=== PATIENT | female | born 1990 | race Caucasian/White ===

== ENCOUNTER 2016-10-10 16:14 | Inpatient (IN) | payer MEDICAID, OTHER ==
[~2016-10-10] VITALS: Ht 157.5 cm; Wt 67.0 kg
[2016-10-10] MEDS ORDERED: SOD CHLORIDE 0.9% 1,000 ML IV STA (17:42)
--- NOTE | 2016-10-10 17:46 | ERD ---
ER Documentation Chief Complaint Date/Time DATE: 10/10/16 TIME: 17:44 Chief Complaint VOMITING X 2 DAYS , FAINTED AT WORK HPI Patient is a 26-year-old female who presents with fainting episode. History is limited due to patient being amnestic to event. According to her father, she said goodbye and left home in [place] to go to work. She was later found lying in the bushes unresponsive in the parking lot of her work. Patient spontaneously regained consciousness. She states that she cannot recall leaving the house. The patient denies headache. She reports feeling lightheaded. She denies chest pain, shortness of breath, abdominal pain, fever. She did have several episodes of vomiting 2 days ago, but they resolved. She has not had diarrhea. She denies dysuria. Last menstrual period was 1 month ago. Patient denies depression, anxiety, or acute stress. ROS All systems reviewed and are negative except as per history of present illness. Medications Home Meds No Active Prescriptions or Reported Meds Allergies Allergies: Coded Allergies: No Known Allergy (Unverified , 10/10/16) PMhx/Soc Past medical history: None Past surgical history: None Social history: Denies tobacco, [facility] or [facility] Family History: No coronary disease, No diabetes Physical Exam Vitals Vital Signs Date Time Temp Pulse Resp B/P Pulse Ox O2 Delivery O2 Flow Rate FiO2 10/10/16 19:06 98.1 76 19 119/71 100 Room Air 10/10/16 16:20 98.1 84 18 117/71 98 Physical Exam Const: Alert, anxious, no acute distress Head: Atraumatic Eyes: Normal Conjunctiva, no pallor, no icterus ENT: Normal External Ears, Nose and Mouth. Neck: Full range of motion..~ No meningismus. Resp: Clear to auscultation bilaterally, no wheezes, no rales Cardio: Regular rate and rhythm, no murmurs Abd: Soft, non tender, non distended. Skin: No petechiae or rashes Back: No midline or flank tenderness Ext: No cyanosis, or edema Neur: Awake and alert, cranial nerves II through XII intact bilaterally, strength and sensation full in 4 extremities. Psych: Normal Mood and Affect Result Diagram: 10/10/16 1740 10/10/16 1840 Results 24 hrs Laboratory Tests Test 10/10/16 17:30 7/19/17 17:40 10/10/16 18:40 Urine Color YELLOW Urine Clarity SLIGHTLY CLOUDY Urine pH 7.0 Urine Specific [place] 1.025 Urine Ketones 2+mg/dL Urine Nitrite NEGATIVEmg/dL Urine Bilirubin NEGATIVEmg/dL Urine Urobilinogen NEGATIVEmg/dL Urine Leukocyte Esterase TRACELeu/ul Urine Microscopic RBC 18/HPF Urine Microscopic WBC 1/HPF Urine Squamous Epithelial Cells FEW/HPF Urine Bacteria FEW/HPF Urine Mucus FEW/HPF Urine Hemoglobin 1+mg/dL Urine Glucose NEGATIVEmg/dL Urine Total Protein NEGATIVEmg/dl White Blood Count 17.110^3/ul Red Blood Count 4.8010^6/ul Hemoglobin 14.5g/dl Hematocrit 43.7% Mean Corpuscular Volume 91.0fl Mean Corpuscular Hemoglobin 30.2pg Mean Corpuscular Hemoglobin Concent 33.2g/dl Red Cell Distribution Width 12.1% Platelet Count 04234^3/UL Mean Platelet Volume 11.7fl Neutrophils % 81.3% Lymphocytes % 13.6% Monocytes % 4.4% Eosinophils % 0.1% Basophils % 0.2% Nucleated Red Blood Cells % 0.0/100WBC Neutrophils # 13.910^3/ul Lymphocytes # 2.310^3/ul Monocytes # 0.810^3/ul Eosinophils # 0.010^3/ul Basophils # 0.010^3/ul Nucleated Red Blood Cells # 0.010^3/ul Prothrombin Time 12.5Sec Prothrombin Time Ratio 1.0 INR International Normalized Ratio 0.93 Serum HCG, Qualitative NEGATIVE Sodium Level 144mmol/L Potassium Level 3.8mmol/L Chloride Level 103mmol/L Carbon Dioxide Level 27mmol/L Anion Gap 18 Blood Urea Nitrogen 14mg/dl Creatinine 0.67mg/dl Glucose Level 107mg/dl Calcium Level 9.3mg/dl Total Bilirubin 0.1mg/dl Direct Bilirubin 0.00mg/dl Indirect Bilirubin 0.1mg/dl Aspartate Amino Transf (AST/SGOT) 24IU/L Alanine Aminotransferase (ALT/SGPT) 27IU/L Alkaline Phosphatase 66IU/L Total Protein 7.9g/dl Albumin 4.2g/dl Globulin 3.70g/dl Albumin/Globulin Ratio 1.13 Current Medications Medications (Trade) Dose Ordered Sig/Debbie Route PRN Reason Start Time Stop Time Status Last Admin Dose Admin Sodium Chloride (NS) 1,000 ml @ 1,000 mls/hr Q1H STAT IV 10/10/16 17:42 10/10/16 18:41 DC 10/10/16 17:59 Ondansetron HCl (Zofran Inj) 4 mg ER BRIDGE PRN IV NAUSEA AND/OR VOMITING 10/10/16 22:00 10/11/16 21:59 Acetaminophen (Tylenol Tab) 650 mg ER BRIDGE PRN PO MILD PAIN/FEVER 10/10/16 22:00 10/11/16 21:59 Procedures/MDM EKG read by me: Time 1824, rate 76 Rhythm: Normal sinus [place]: Normal Intervals: Normal ST-T waves: no ischemic changes Ectopy: No Q-waves: No Impression: No evidence of ischemia or arrhythmia MDM: Patient is a 26-year-old female who was found in the bushes outside of her work unresponsive. Syncope workup was initiated, including EKG, labs, and CT head due to amnesia. Tests were unremarkable except for leukocytosis which is nonspecific. There were no other neurological deficits. She was initially amnestic to a long period of events prior to her being found. She subsequently regained memory from this time period, but was noted to have repetitive questioning by her father while she was in the ER. I attempted to test the patient's word recall, and she was not able to recall 3 words at 10 minutes. She also stated that she could not recall having encountered me before. The patient was crying profusely during 5 hours in the ER. I questioned her in private on multiple occasions about stress, anxiety, depression, abuse, and the patient denies any of these. She stated that she is crying because she is upset that she passed out and that she cannot remember the events around this time. Her father states that her brother at this hospital 3 years ago, and thinks that that is what is upsetting her, but the patient does not endorse this view. I suspect that the patient may have sustained an emotional trauma and may lack insight or not wish to disclose the events. However, given that she is continuing to have anterograde amnesia, she will need to be admitted for further neurologic workup prior to medical clearance. She may require psychiatric evaluation, but does not meet hold criteria at this time. Patient will be admitted to observation by Dr. Garduon. Departure Diagnosis: Primary Impression: Syncope Syncope type: unspecified Qualified Code: R55 - Syncope, unspecified syncope type Additional Impression: Anterograde amnesia Condition: Stable EDSNO GARVIN MD Oct 10, 2016 17:46
[2016-10-10 17:58] LABS: ADD SCAN DIFF NO
[2016-10-10 18:00] LABS: BASOPHILS % 0.2 % (0.0-2.0); EOSINOPHILS % 0.1 % (0.0-7.0); HEMATOCRIT 43.7 % (37.0-47.0); HEMOGLOBIN 14.5 g/dl (12.0-16.0); LYMPHOCYTES # 2.3 10^3/ul (0.8-2.9); LYMPHOCYTES % 13.6 % (15.0-51.0); MEAN CORPUSCULAR HEMOGLOBIN 30.2 pg (29.0-33.0); MEAN CORPUSCULAR HGB CONC 33.2 g/dl (32.0-37.0); MEAN PLATELET VOLUME 11.7 fl (7.4-10.4); MONOCYTE # 0.8 10^3/ul (0.3-0.9); MONOCYTES % 4.4 % (0.0-11.0); NEUTROPHIL # 13.9 10^3/ul (1.6-7.5); NEUTROPHILS % 81.3 % (39.0-77.0); PLATELET COUNT 306 10^3/UL (140-415); RED CELL DISTRIBUTION WIDTH 12.1 % (11.5-14.5); WHITE BLOOD COUNT 17.1 10^3/ul (4.8-10.8)
[2016-10-10 18:20] LABS: ADD UMIC YES; UR ASCORBIC ACID NEGATIVE (NEGATIVE); UR BACTERIA FEW /HPF (NONE SEEN); UR BILIRUBIN (Dip) NEGATIVE (NEGATIVE); UR BLOOD (Dip) 1+ mg/dL (NEGATIVE); UR CLARITY SLIGHTLY CLOUDY (CLEAR); UR COLOR YELLOW (YELLOW); UR GLUCOSE (Dip) NEGATIVE (NEGATIVE); UR KETONES (Dip) 2+ mg/dL (NEGATIVE); UR LEUKOCYTE ESTERASE (Dip) TRACE Leu/ul (NEGATIVE); UR MUCUS FEW /HPF (NONE SEEN); UR NITRITE (Dip) NEGATIVE (NEGATIVE); UR RBC 18 /HPF (0-5); UR SPECIFIC GRAVITY (Dip) 1.025 (1.003-1.030); UR SQUAMOUS EPITHELIAL CELL FEW /HPF (FEW); UR TOTAL PROTEIN (Dip) NEGATIVE (NEGATIVE); UR UROBILINOGEN (Dip) NEGATIVE (NEGATIVE)
--- NOTE | 2016-10-10 18:27 | RADRPT ---
PROCEDURE: CT Head without contrast. CLINICAL INDICATION: Syncope TECHNIQUE: The study was performed utilizing a GE 64-slice multidetector CT scanner. Direct spiral axial CT images of the brain were obtained from the vertex to the skull base without contrast. Cor onal and sagittal reformat images are provided. The CTDI vol is 43.05 mGy and the DLP is 720.23 mGy -cm. The images were reviewed on a PACS workstation. COMPARISON: No prior studies are available for comparison. FINDINGS: The ventricles and cortical sulci are within normal limits. The carcamo-white matter differentiation i s maintained. No intra or extra-axial fluid collection or mass effect or shift in the midline struc tures is seen. The visualized paranasal sinuses, mastoid air cells, orbits, and calvarium are unrem arkable. IMPRESSION: Unremarkable CT of the head without contrast. RPTAT: HPNM Physician Narda Date Time Electronically viewed and signed by Physician Narda on 10/10/2016 18:26 /
[2016-10-10 19:00] LABS: INR 0.93; PROTIME 12.5 Sec (12.2-14.2)
[2016-10-10 19:05] LABS: ALBUMIN 4.2 g/dl (3.3-4.9); ALBUMIN/GLOBULIN RATIO 1.13; BILIRUBIN,INDIRECT 0.1 mg/dl (0-1.1); BILIRUBIN,TOTAL 0.1 mg/dl (0.2-1.3); CALCIUM 9.3 mg/dl (8.4-10.2); CREATININE 0.67 mg/dl (0.44-1.00); POTASSIUM 3.8 mmol/L (3.5-5.1); TOTAL PROTEIN 7.9 g/dl (6.1-8.1)
[2016-10-10] MEDS ORDERED: ACETAMINOPHEN 325 MG TAB PO PRN (22:00)
[2016-10-10] MEDS ORDERED: ONDANSETRON 4 MG INJ IV PRN (22:00)
[2016-10-10 22:27] LABS: BARBITURATES Negative (NEGATIVE); BENZODIAZEPINES Negative (NEGATIVE); CANNABINOIDS Negative (NEGATIVE); COCAINE Negative (NEGATIVE); OPIATES Negative (NEGATIVE)
[2016-10-10 23:23] VITALS: TEMP 98.7
[2016-10-11] VITALS (13 sets, daily range): BP systolic 99–113; BP diastolic 60–77; PULSE 67–93; RESP 15–20; Ht 157.5 cm; Wt 67.0 kg
[2016-10-11] MEDS ORDERED: ONDANSETRON 4 MG INJ IV PRN (03:30)
--- NOTE | 2016-10-11 06:04 | HP ---
Date/Time of Note Date/Time of Note DATE: 10/11/16 TIME: 05:48 Assessment/Plan VTE Prophylaxis VTE Prophylaxis Intervention: SCD's Lines/Catheters [facility] Saline Lock Assessment/Plan Assessment/Plan IMPRESSION 1. Acute Encephalopathy with Antegrade Amnesia 2. Syncope 3. Leukocytosis PLAN - Etiology of altered mentation, syncope and short term memory loss is currently unknown. Head CT is neg. Plan is to obtain MRI of the brain. Will place a Neurology consult. Cont telemetry monitoring. Depending on clinical course, she may benefit from telepsych evaluation. of note, utox was negative. - Leukocytosis is most likely reactive. will f/u am lab for now. HPI/ROS Admit Date/Time Admit Date/Time Oct 10, 2016 at 21:53 Hx of Present Illness Patient is a 26-year-old female who presents to ER after she was found down. History is limited due to patient being amnestic to event. According to her father, she said goodbye and left home in Uber to go to work. She was later found lying in the bushes unresponsive in the parking lot of her work. Patient spontaneously regained consciousness. She states that she cannot recall leaving the house. The patient denies headache. She reports feeling lightheaded. She denies chest pain, shortness of breath, abdominal pain, fever. She did have several episodes of NBNB vomiting 2 days ago, but has resolved. Patient has difficulty with short term memory, for example not remembering me when I left room and come back. She denied being assaulted. In ER, Head CT was negative. Vitals were stable. Lab showed WBC of 17K. . PMH/Family/Social Social History Smoking Status: Never smoker Exam/Review of Systems Vital Signs Vitals Vital Signs Date Time Temp Pulse Resp B/P Pulse Ox O2 Delivery O2 Flow Rate FiO2 10/11/16 04:05 79 10/11/16 04:00 98.7 15 99/60 96 10/10/16 23:23 Room Air Intake and Output 10/10/16 10/10/16 10/11/16 15:00 23:00 07:00 Intake Total 1000 ml Balance 1000 ml Exam Constitutional: other (at times, sleepy), well developed Head: atraumatic, normocephalic Eyes: EOMI, PERRL Respiratory: clear to auscultation, normal air movement Cardiovascular: nl pulses, regular rate and rhythm Gastrointestinal: non-tender, soft Extremities: normal pulses Labs Result Diagram: 10/10/16173910/10/16 1840 Medications Medications Current Medications Ondansetron HCl (Zofran Inj) 4 mg Q6H PRN IV NAUSEA AND/OR VOMITING; Start at 03:30 Acetaminophen (Tylenol Tab) 650 mg Q4H PRN PO PAIN AND OR ELEVATED TEMP; Start 10/11/16 at 03:30 MARTIN WHITNEY MD Oct 11, 2016 06:00
[2016-10-11 07:02] LABS: ADD SCAN DIFF NO
[2016-10-11 07:05] LABS: BASOPHILS % 0.3 % (0.0-2.0); EOSINOPHILS % 0.2 % (0.0-7.0); HEMATOCRIT 37.6 % (37.0-47.0); HEMOGLOBIN 12.4 g/dl (12.0-16.0); LYMPHOCYTES # 2.9 10^3/ul (0.8-2.9); LYMPHOCYTES % 26.1 % (15.0-51.0); MEAN CORPUSCULAR HEMOGLOBIN 29.7 pg (29.0-33.0); MEAN CORPUSCULAR VOLUME 90.2 fl (82.0-101.0); MEAN PLATELET VOLUME 10.9 fl (7.4-10.4); MONOCYTE # 0.7 10^3/ul (0.3-0.9); NEUTROPHIL # 7.5 10^3/ul (1.6-7.5); NEUTROPHILS % 67.1 % (39.0-77.0); PLATELET COUNT 272 10^3/UL (140-415); RED BLOOD COUNT 4.17 10^6/ul (4.20-5.40); RED CELL DISTRIBUTION WIDTH 12.3 % (11.5-14.5); WHITE BLOOD COUNT 11.2 10^3/ul (4.8-10.8)
[2016-10-11 07:33] LABS: ALBUMIN 3.6 g/dl (3.3-4.9); ALBUMIN/GLOBULIN RATIO 1.16; BILIRUBIN,INDIRECT 0.3 mg/dl (0-1.1); BILIRUBIN,TOTAL 0.3 mg/dl (0.2-1.3); CALCIUM 9.3 mg/dl (8.4-10.2); CREATININE 0.63 mg/dl (0.44-1.00); MAGNESIUM 1.9 mg/dl (1.7-2.5); PHOSPHORUS 3.5 mg/dl (2.5-4.9); POTASSIUM 3.9 mmol/L (3.5-5.1); TOTAL PROTEIN 6.7 g/dl (6.1-8.1)
[2016-10-11 08:00] LABS: THYROID STIMULATING HORMONE 3.75 MIU/L (0.465-4.680)
[2016-10-11 08:35] LABS: FOLATE 13.8 ng/ml (2.8-20.0)
[2016-10-11] MEDS: ACETAMINOPHEN 325 MG TAB PO PRN (12:20)
--- NOTE | 2016-10-11 12:21 | PDOCDIS ---
Discharge Instructions CONDITION Patient Condition: Good HOME CARE INSTRUCTIONS: Diet Instructions: Regular ACTIVITY: Activity Restrictions: No Restrictions FOLLOW UP/APPOINTMENTS Follow-up Plan F/U WITH A PCP AND NEUROLOGIST IN 1-2 WEEKS JUANIS TAVERA Oct 11, 2016 12:21
--- NOTE | 2016-10-11 14:46 | PN ---
Date/Time of Note Date/Time of Note DATE: 10/11/16 TIME: 14:40 Assessment/Plan VTE Prophylaxis VTE Prophylaxis Intervention: SCD's Lines/Catheters [facility] Saline Lock Assessment/Plan Chief Complaint/Hosp Course 1. Acute Encephalopathy with Antegrade Amnesia-cause unclear CT brain is normal Follow-up on MRI, B12 and RPR and HIV Neurology consultation 2. Hypernatremia secondary to dehydration IV fluids with half NS 3. Leukocytosis possibly secondary to UTI Obtain urine culture Empiric Rocephin Prophylaxis: SCDs Problems: Subjective 24 Hr Interval Summary Constitutional: no complaints Exam/Review of Systems Vital Signs Vitals Vital Signs Date Time Temp Pulse Resp B/P Pulse Ox O2 Delivery O2 Flow Rate FiO2 10/11/16 12:25 99.4 83 16 102/65 96 Room Air Intake and Output 10/10/16 10/10/16 10/11/16 15:00 23:00 07:00 Intake Total 1000 ml Balance 1000 ml Exam Constitutional: alert Psych: confusion Respiratory: clear to auscultation Cardiovascular: regular rate and rhythm Gastrointestinal: soft, No distended Musculoskeletal: nl extremities to inspection Results Result Diagram: 10/11/16 0636 10/11/16 0636 Results 24 hrs Laboratory Tests Test 10/10/16 17:30 10/10/16 17:40 10/10/16 18:40 10/11/16 06:36 Urine Color YELLOW Urine Clarity SLIGHTLY CLOUDY A Urine pH 7.0 Urine Specific [place] 1.025 Urine Ketones 2+ H Urine Nitrite NEGATIVE Urine Bilirubin NEGATIVE Urine Urobilinogen NEGATIVE Urine Leukocyte Esterase TRACE A Urine Microscopic RBC 18 H Urine Microscopic WBC 1 Urine Squamous Epithelial Cells FEW Urine Bacteria FEW A Urine Mucus FEW A Urine Hemoglobin 1+ H Urine Glucose NEGATIVE Urine Total Protein NEGATIVE Urine Opiates Screen Negative Urine Barbiturates Negative Urine Amphetamines Screen Negative Urine Benzodiazepines Screen Negative Urine Cocaine Screen Negative Urine Cannabinoids Negative White Blood Count 17.1 H 11.2 #H Red Blood Count 4.80 4.17 L Hemoglobin 14.5 12.4 Hematocrit 43.7 37.6 Mean Corpuscular Volume 91.0 90.2 Mean Corpuscular Hemoglobin 30.2 29.7 Mean Corpuscular Hemoglobin Concent 33.2 33.0 Red Cell Distribution Width 12.1 12.3 Platelet Count 306 272 Mean Platelet Volume 11.7 H 10.9 H Neutrophils % 81.3 H 67.1 Lymphocytes % 13.6 L 26.1 Monocytes % 4.4 6.0 Eosinophils % 0.1 0.2 Basophils % 0.2 0.3 Nucleated Red Blood Cells % 0.0 0.0 Neutrophils # 13.9 H 7.5 Lymphocytes # 2.3 2.9 Monocytes # 0.8 0.7 Eosinophils # 0.0 0.0 Basophils # 0.0 0.0 Nucleated Red Blood Cells # 0.0 0.0 Prothrombin Time 12.5 Prothrombin Time Ratio 1.0 INR International Normalized Ratio 0.93 Serum HCG, Qualitative NEGATIVE Sodium Level 144 146 H Potassium Level 3.8 3.9 Chloride Level 103 105 Carbon Dioxide Level 27 26 Anion Gap 18 H 19 H Blood Urea Nitrogen 14 9 Creatinine 0.67 0.63 Glucose Level 107 79 Calcium Level 9.3 9.3 Total Bilirubin 0.1 L 0.3 Direct Bilirubin 0.00 0.00 Indirect Bilirubin 0.1 0.3 Aspartate Amino Transf (AST/SGOT) 24 26 Alanine Aminotransferase (ALT/SGPT) 27 23 Alkaline Phosphatase 66 55 Total Protein 7.9 6.7 # Albumin 4.2 3.6 Globulin 3.70 H 3.10 Albumin/Globulin Ratio 1.13 1.16 Phosphorus Level 3.5 Magnesium Level 1.9 Vitamin B12 Level 334 Folate 13.8 Thyroid Stimulating Hormone (TSH) 3.750 Medications Medications Current Medications Ondansetron HCl (Zofran Inj) 4 mg Q6H PRN IV NAUSEA AND/OR VOMITING; Start at 03:30 Acetaminophen 650 mg 650 mg Q4H PRN PO PAIN AND OR ELEVATED TEMP Last administered on 10/11/16t 12:20; Admin Dose 650 MG; Start 10/11/16 at 03:30 Sodium Chloride 1,000 ml @ 150 mls/hr Q6H40M IV ; Start 10/11/16 at 15:00; Status UNV Ceftriaxone Sodium (Rocephin) 50 ml @ 100 mls/hr Q24H IVPB ; Start 10/11/16 at 15:00; Status UNV JUANIS TAVERA Oct 11, 2016 14:45
--- NOTE | 2016-10-11 15:27 | CONS ---
Date/Time of Note Date/Time of Note DATE: 10/11/16 TIME: 15:20 Assessment/Plan Assessment/Plan Chief Complaint/Hosp Course 26 yo female with no significant PMHx admitted with unclear episode of possible syncope followed by amnesia, patient has loss of recollection for events after leaving her house for work. Family will attempt to obtain collateral history from coworkers regarding further details of the events. Recommend MRI Brain w and without contrast temporal lobe cuts EEG infectious work up, B12, TSH hypernatremia being given D5 1/2 NS will follow again tomorrow, advised patient the episode is unclear and i will review further studies and determine if AED are necessary, if any abnormality on EEG or MRI i will likely treat her with AED, she will require outpatient neurology follow up if all tests are negative and would benefit from a prolonged EEG (up to 24 hours) in the future Problems: Consultation Date/Type/Reason Admit Date/Time Oct 10, 2016 at 21:53 Date of Consultation: Oct 11, 2016 Type of Consultation: Neurology Reason for Consultation amnestic event, syncope? Referring Provider: JUANIS TAVERA Hx of Present Illness 26 year old female with no significant past medical history, works as a psychiatric technician was on her way to work yesterday recalls taking an Uber and then went to work. While at work she had an unclear episode where she was feeling unwell, called her sister to pick her up. She was unable to fish bait picker her phone when her sister got there she waited an hour, eventually she saw her sitting on a chair at work looked dazed and tremulous. The details prior to this episode are unclear, sister will contact co workers to obtain further history in regards to possible seizure activity. Family are poor historians. CTH negative Utox negative WBC: 17.1 on admission U/A with trace LE Constitutional: no complaints Psychological: confusion Past Medical History denies neurologic hx Social History Smoking Status: Never smoker Exam/Review of Systems Vital Signs Vitals Vital Signs Date Time Temp Pulse Resp B/P Pulse Ox O2 Delivery O2 Flow Rate FiO2 10/11/16 12:25 99.4 83 16 102/65 96 Room Air Intake and Output 10/10/16 10/10/16 10/11/16 15:00 23:00 07:00 Intake Total 1000 ml Balance 1000 ml Exam Constitutional: alert, oriented, well developed Psych: no complaints Neurological: BANDAGE MAKER II-XII intact, DTR's symmetric, nl mental status, nl speech, nl strength Results Result Diagram: 10/11/16 0636 10/11/16 0636 Results 24 hrs Laboratory Tests Test 10/10/16 17:30 10/10/16 17:40 10/10/16 18:40 10/11/16 06:36 Urine Color YELLOW Urine Clarity SLIGHTLY CLOUDY A Urine pH 7.0 Urine Specific [place] 1.025 Urine Ketones 2+ H Urine Nitrite NEGATIVE Urine Bilirubin NEGATIVE Urine Urobilinogen NEGATIVE Urine Leukocyte Esterase TRACE A Urine Microscopic RBC 18 H Urine Microscopic WBC 1 Urine Squamous Epithelial Cells FEW Urine Bacteria FEW A Urine Mucus FEW A Urine Hemoglobin 1+ H Urine Glucose NEGATIVE Urine Total Protein NEGATIVE Urine Opiates Screen Negative Urine Barbiturates Negative Urine Amphetamines Screen Negative Urine Benzodiazepines Screen Negative Urine Cocaine Screen Negative Urine Cannabinoids Negative White Blood Count 17.1 H 11.2 #H Red Blood Count 4.80 4.17 L Hemoglobin 14.5 12.4 Hematocrit 43.7 37.6 Mean Corpuscular Volume 91.0 90.2 Mean Corpuscular Hemoglobin 30.2 29.7 Mean Corpuscular Hemoglobin Concent 33.2 33.0 Red Cell Distribution Width 12.1 12.3 Platelet Count 306 272 Mean Platelet Volume 11.7 H 10.9 H Neutrophils % 81.3 H 67.1 Lymphocytes % 13.6 L 26.1 Monocytes % 4.4 6.0 Eosinophils % 0.1 0.2 Basophils % 0.2 0.3 Nucleated Red Blood Cells % 0.0 0.0 Neutrophils # 13.9 H 7.5 Lymphocytes # 2.3 2.9 Monocytes # 0.8 0.7 Eosinophils # 0.0 0.0 Basophils # 0.0 0.0 Nucleated Red Blood Cells # 0.0 0.0 Prothrombin Time 12.5 Prothrombin Time Ratio 1.0 INR International Normalized Ratio 0.93 Serum HCG, Qualitative NEGATIVE Sodium Level 144 146 H Potassium Level 3.8 3.9 Chloride Level 103 105 Carbon Dioxide Level 27 26 Anion Gap 18 H 19 H Blood Urea Nitrogen 14 9 Creatinine 0.67 0.63 Glucose Level 107 79 Calcium Level 9.3 9.3 Total Bilirubin 0.1 L 0.3 Direct Bilirubin 0.00 0.00 Indirect Bilirubin 0.1 0.3 Aspartate Amino Transf (AST/SGOT) 24 26 Alanine Aminotransferase (ALT/SGPT) 27 23 Alkaline Phosphatase 66 55 Total Protein 7.9 6.7 # Albumin 4.2 3.6 Globulin 3.70 H 3.10 Albumin/Globulin Ratio 1.13 1.16 Phosphorus Level 3.5 Magnesium Level 1.9 Vitamin B12 Level 334 Folate 13.8 Thyroid Stimulating Hormone (TSH) 3.750 Medications Medications Current Medications Ondansetron HCl (Zofran Inj) 4 mg Q6H PRN IV NAUSEA AND/OR VOMITING; Start at 03:30 Acetaminophen 650 mg 650 mg Q4H PRN PO PAIN AND OR ELEVATED TEMP Last administered on 10/11/16t 12:20; Admin Dose 650 MG; Start 10/11/16 at 03:30 Sodium Chloride 1,000 ml @ 150 mls/hr Q6H40M IV ; Start 10/11/16 at 15:00; Stop 10/12/16 at 10:59 Ceftriaxone Sodium (Rocephin) 50 ml @ 100 mls/hr Q24H IVPB ; Start 10/11/16 at 16:00 MURTAZA BEY MD Oct 11, 2016 15:27
[2016-10-11] MEDS: SOD CHLORIDE 0.45% 1,000 ML IV SCH ×2 (16:05→21:40)
[2016-10-11] MEDS: CEFTRIAXONE 1 GM/50 ML (PMX) 50 ML IVPB SCH (16:50)
[2016-10-12] VITALS (10 sets, daily range): BP systolic 109–119; BP diastolic 64–79; PULSE 58–79; RESP 18–20
[2016-10-12] MEDS: SOD CHLORIDE 0.45% 1,000 ML IV SCH ×2 (01:39→04:20)
[2016-10-12 08:40] LABS: ADD SCAN DIFF NO
[2016-10-12 08:45] LABS: BASOPHILS % 0.3 % (0.0-2.0); EOSINOPHILS # 0.1 10^3/ul (0.0-0.5); EOSINOPHILS % 0.6 % (0.0-7.0); HEMATOCRIT 42.1 % (37.0-47.0); HEMOGLOBIN 13.8 g/dl (12.0-16.0); LYMPHOCYTES # 3.6 10^3/ul (0.8-2.9); LYMPHOCYTES % 29.8 % (15.0-51.0); MEAN CORPUSCULAR HEMOGLOBIN 29.7 pg (29.0-33.0); MEAN CORPUSCULAR HGB CONC 32.8 g/dl (32.0-37.0); MEAN CORPUSCULAR VOLUME 90.5 fl (82.0-101.0); MEAN PLATELET VOLUME 11.1 fl (7.4-10.4); MONOCYTE # 0.6 10^3/ul (0.3-0.9); MONOCYTES % 5.3 % (0.0-11.0); NEUTROPHIL # 7.8 10^3/ul (1.6-7.5); NEUTROPHILS % 63.7 % (39.0-77.0); PLATELET COUNT 296 10^3/UL (140-415); RED BLOOD COUNT 4.65 10^6/ul (4.20-5.40); WHITE BLOOD COUNT 12.2 10^3/ul (4.8-10.8)
[2016-10-12 09:30] LABS: CALCIUM 9.4 mg/dl (8.4-10.2); CREATININE 0.64 mg/dl (0.44-1.00); MAGNESIUM 1.8 mg/dl (1.7-2.5); PHOSPHORUS 3.2 mg/dl (2.5-4.9); POTASSIUM 4.1 mmol/L (3.5-5.1)
--- NOTE | 2016-10-12 11:58 | CONS ---
Date/Time of Note Date/Time of Note DATE: 10/12/16 TIME: 11:43 Consult Date/Type/Reason Admit Date/Time Oct 11, 2016 at 12:42 Initial Consult Date 10/11/16 Type of Consultation: Neurology Reason for Consultation amnesia Ordering Provider: JUANIS TAVERA Subjective poor short term memory unable to recall events prior to hospitalization and forgetting things, repeating herself while in the hospital WBC elevated to 12.2 with elevated Na: 146 Objective Vital Signs Date Time Temp Pulse Resp B/P Pulse Ox O2 Delivery O2 Flow Rate FiO2 10/12/16 08:00 69 10/12/16 07:47 98.4 20 119/79 97 Room Air Intake and Output 10/11/16 10/11/16 10/12/16 15:00 23:00 07:00 Intake Total 1450 ml Balance 1450 ml Exam awake and alert oriented to self, hospital and day says instead of Saturday her exam is non-focal on my evaluation per nurse she keeps repeating herself, asks the same questions forgot she had the MRI CN: II-XII intact Motor: 5/5 Sensory intact Coordination: no ataxia Reflexes 2+ toes down Results/Medications Result Diagram: 10/12/16 0800 10/12/16 0800 Results 24 hrs Laboratory Tests Test 10/12/16 08:00 White Blood Count 12.2 H Red Blood Count 4.65 Hemoglobin 13.8 Hematocrit 42.1 Mean Corpuscular Volume 90.5 Mean Corpuscular Hemoglobin 29.7 Mean Corpuscular Hemoglobin Concent 32.8 Red Cell Distribution Width 12.0 Platelet Count 296 Mean Platelet Volume 11.1 H Neutrophils % 63.7 Lymphocytes % 29.8 Monocytes % 5.3 Eosinophils % 0.6 Basophils % 0.3 Neutrophils # 7.8 H Lymphocytes # 3.6 H Monocytes # 0.6 Eosinophils # 0.1 Basophils # 0.0 Nucleated Red Blood Cells # 0.0 Sodium Level 145 H Potassium Level 4.1 Chloride Level 106 Carbon Dioxide Level 23 Anion Gap 20 H Blood Urea Nitrogen 7 Creatinine 0.64 Glucose Level 78 Hemoglobin A1c 5.4 Calcium Level 9.4 Phosphorus Level 3.2 Magnesium Level 1.8 Medications Current Medications Ondansetron HCl (Zofran Inj) 4 mg Q6H PRN IV NAUSEA AND/OR VOMITING; Start at 03:30 Acetaminophen 650 mg 650 mg Q4H PRN PO PAIN AND OR ELEVATED TEMP Last administered on 10/11/16 12:20; Admin Dose 650 MG; Start 10/11/16 at 03:30 Ceftriaxone Sodium 50 ml @ 100 mls/hr Q24H IVPB Last administered on 16:50; Admin Dose 100 MLS/HR; Start 10/11/16 at 16:00 Dextrose (D5W) 1,000 ml @ 125 mls/hr Q8H IV ; Start 10/12/16 at 11:00; Stop at 02:59 Assessment/Plan Chief Complaint/Hosp Course 26 yo female with no significant PMHx admitted with unclear episode of possible syncope followed by amnesia, patient has loss of recollection for events after leaving her house for work. Family will attempt to obtain collateral history from coworkers regarding further details of the events. She has persistent short term memory issues. Recommend: MRI Brain w and without contrast temporal lobe cuts- unable to review films, per report findings consistent with PRES start Keppra 750 mg q12h, PRES often follows seizure trend WBC, LP ordered CSF Glucose, Protein, Cultures, HSV PCR, will add miscellaneous VZV IgG and IgM in light of PRES will obtain MRA Head w/o contrast to evaluate for vasculitis often PRES is associated with RCVS will send ESR, CRP, TAY- further vasculitis panel if indicated EEG completed, will be reviewed hypernatremia being given D5 1/2 NS will follow again tomorrow Problems: MURTAZA BEY MD Oct 12, 2016 11:58
[2016-10-12] MEDS: LEVETIRACETAM 750 MG TAB PO SCH ×2 (12:50→21:06)
[2016-10-12] MEDS: DEXTROSE 5% 1,000 ML IV SCH ×2 (12:50→23:37)
[2016-10-12] MEDS: ACETAMINOPHEN 325 MG TAB PO PRN (14:49)
--- NOTE | 2016-10-12 15:54 | PN ---
Date/Time of Note Date/Time of Note DATE: 10/12/16 TIME: 15:49 Assessment/Plan VTE Prophylaxis VTE Prophylaxis Intervention: SCD's Lines/Catheters IV Catheter Type (from Nrs): Peripheral IV Assessment/Plan Chief Complaint/Hosp Course 1. Acute Encephalopathy with Antegrade Amnesia MRI results per verbal conversation with radiologist suggests PRES syndrome CT brain is normal Neurology consultation appreciated and workup is in progress including LP and EEG Started on Keppra 2. Hypernatremia secondary to dehydration IV fluids changed to D5 W 3. Leukocytosis likely secondary to UTI and/or [employer] infection Urine culture shows gram-negative rods, follow-up on C&S Continue empiric Rocephin Prophylaxis: SCDs Problems: Subjective 24 Hr Interval Summary Constitutional: disoriented Exam/Review of Systems Vital Signs Vitals Vital Signs Date Time Temp Pulse Resp B/P Pulse Ox O2 Delivery O2 Flow Rate FiO2 10/12/16 12:49 99.2 79 20 116/74 97 Room Air Intake and Output 10/11/16 10/11/16 10/12/16 15:00 23:00 07:00 Intake Total 1450 ml Balance 1450 ml Exam Psych: confusion Respiratory: clear to auscultation Cardiovascular: regular rate and rhythm Gastrointestinal: soft, No distended Musculoskeletal: nl extremities to inspection Results Result Diagram: 10/12/16 0800 10/12/16 0800 Results 24 hrs Laboratory Tests Test 10/12/16 08:00 10/12/16 12:23 10/12/16 12:31 White Blood Count 12.2 H Red Blood Count 4.65 Hemoglobin 13.8 Hematocrit 42.1 Mean Corpuscular Volume 90.5 Mean Corpuscular Hemoglobin 29.7 Mean Corpuscular Hemoglobin Concent 32.8 Red Cell Distribution Width 12.0 Platelet Count 296 Mean Platelet Volume 11.1 H Neutrophils % 63.7 Lymphocytes % 29.8 Monocytes % 5.3 Eosinophils % 0.6 Basophils % 0.3 Neutrophils # 7.8 H Lymphocytes # 3.6 H Monocytes # 0.6 Eosinophils # 0.1 Basophils # 0.0 Nucleated Red Blood Cells # 0.0 Sodium Level 145 H Potassium Level 4.1 Chloride Level 106 Carbon Dioxide Level 23 Anion Gap 20 H Blood Urea Nitrogen 7 Creatinine 0.64 Glucose Level 78 Hemoglobin A1c 5.4 Calcium Level 9.4 Phosphorus Level 3.2 Magnesium Level 1.8 C-Reactive Protein 1.7 H Erythrocyte Sedimentation Rate 22 H Medications Medications Current Medications Ondansetron HCl (Zofran Inj) 4 mg Q6H PRN IV NAUSEA AND/OR VOMITING; Start at 03:30 Acetaminophen 650 mg 650 mg Q4H PRN PO PAIN AND OR ELEVATED TEMP Last administered on 10/12/16 14:49; Admin Dose 650 MG; Start 10/11/16 at 03:30 Ceftriaxone Sodium 50 ml @ 100 mls/hr Q24H IVPB Last administered on 16:50; Admin Dose 100 MLS/HR; Start 10/11/16 at 16:00 Dextrose (D5W) 1,000 ml @ 125 mls/hr Q8H IV Last administered on 10/12/16 12: 50; Admin Dose 125 MLS/HR; Start 10/12/16 at 11:00; Stop 10/13/16 at 02:59 Levetiracetam (Keppra) 750 mg BID PO Last administered on 10/12/16 12:50; Admin Dose 750 MG; Start 10/12/16 at 13:00 JUANIS TAVERA Oct 12, 2016 15:54
[2016-10-12] MEDS: CEFTRIAXONE 1 GM/50 ML (PMX) 50 ML IVPB SCH (16:01)
--- NOTE | 2016-10-12 16:33 | RADRPT ---
PROCEDURE: MRA Brain. CLINICAL INDICATION: Syncope and antegrade amnesia TECHNIQUE: An MRA of the brain was performed on a 1.5 lamonte scanner utilizing 3-D [id number] M R angiography technique. Source and MIP images were reviewed. COMPARISON: None FINDINGS: The internal carotid arteries are patent and normal in caliber. The middle cerebral and the anterio r cerebral arteries are also patent and normal in caliber with no significant luminal irregularity o r narrowing identified. The vertebral arteries, basilar artery, and superior cerebellar arteries ar e visualized and normal in appearance. The vertebral arteries are essentially codominant. The post erior cerebral arteries are patent and normal in appearance bilaterally. No cerebral aneurysm is d etected. IMPRESSION: 1. Normal MRA of the brain. 2. Please note that MRA has low sensitivity for detection of small vessel vasculitis or aneurysms le ss than 3 mm in size, due to limited spatial resolution. RPTAT: PP Physician Marie Date Time Electronically viewed and signed by Physician Marie on 10/12/2016 16:32 KARTIK/
--- NOTE | 2016-10-12 18:09 | RADRPT ---
PROCEDURE: Fluoroscopic guided lumbar puncture. CLINICAL INDICATION: Viral encephalitis. TECHNIQUE: Prior to the procedure, informed consent was obtained. Risks including bleeding and in fection were explained to the patient. The patient understood and was willing to proceed. A proced ural pause was performed. The patient's name, date of , and procedure to be performed were navdeep ified. Using local anesthetic, sterile technique, and fluoroscopic guidance, a 22-gauge spinal needle was a dvanced into the thecal sac at the L4-5 level. Opening pressure was 10 cm of water. 5 mL of clear cerebrospinal fluid was aspirated and sent for laboratory analysis. The needle was removed. A dres sing was applied. The patient tolerated the procedure well. A total of 0.1 minutes of fluoroscopy time was used. 3 images were obtained with image intensifier. COMPARISON: None. FINDINGS: Images demonstrate the needle at the L4-5 level in the thecal sac. IMPRESSION: Satisfactory fluoroscopic guided lumbar puncture. The opening pressure was 10 cm of water. RPTAT: QQ .Hipolito Sanchez MD, MD Date Time Electronically viewed and signed by .Hipolito Sanchez MD, on 10/12/2016 18:08 .R/
[2016-10-12 18:38] LABS: GLUCOSE,CSF 60 mg/dl (50-80)
[2016-10-12 19:16] LABS: CSF COLOR COLORLESS; CSF#TUBES REC'D 4
[2016-10-12 19:17] LABS: CSF COLOR COLORLESS; CSF#TUBE COUNT TUBE#1; CSF#TUBE COUNT TUBE#4; CSF#TUBES REC'D 4
[2016-10-13] VITALS (10 sets, daily range): BP systolic 103–115; BP diastolic 61–67; PULSE 56–83; RESP 16–20
[2016-10-13] MEDS: ACETAMINOPHEN 325 MG TAB PO PRN ×4 (00:49→20:41)
[2016-10-13 07:35] LABS: BASOPHILS % 0.3 % (0.0-2.0); EOSINOPHILS # 0.1 10^3/ul (0.0-0.5); EOSINOPHILS % 0.8 % (0.0-7.0); HEMATOCRIT 40.4 % (37.0-47.0); HEMOGLOBIN 13.1 g/dl (12.0-16.0); LYMPHOCYTES # 2.8 10^3/ul (0.8-2.9); LYMPHOCYTES % 30.8 % (15.0-51.0); MEAN CORPUSCULAR HEMOGLOBIN 29.6 pg (29.0-33.0); MEAN CORPUSCULAR HGB CONC 32.4 g/dl (32.0-37.0); MEAN CORPUSCULAR VOLUME 91.2 fl (82.0-101.0); MEAN PLATELET VOLUME 11.2 fl (7.4-10.4); MONOCYTE # 0.6 10^3/ul (0.3-0.9); MONOCYTES % 6.8 % (0.0-11.0); NEUTROPHIL # 5.6 10^3/ul (1.6-7.5); PLATELET COUNT 277 10^3/UL (140-415); RED BLOOD COUNT 4.43 10^6/ul (4.20-5.40); RED CELL DISTRIBUTION WIDTH 12.3 % (11.5-14.5); WHITE BLOOD COUNT 9.2 10^3/ul (4.8-10.8)
[2016-10-13 07:51] LABS: CALCIUM 9.2 mg/dl (8.4-10.2); CREATININE 0.65 mg/dl (0.44-1.00)
[2016-10-13] MEDS: LEVETIRACETAM 750 MG TAB PO SCH ×2 (09:35→20:41)
[2016-10-13 13:04] LABS: ANA SCREEN NEGATIVE (NEGATIVE)
--- NOTE | 2016-10-13 13:10 | PN ---
Date/Time of Note Date/Time of Note DATE: 10/13/16 TIME: 13:02 Assessment/Plan VTE Prophylaxis VTE Prophylaxis Intervention: SCD's Lines/Catheters IV [facility] (from [facility]): Peripheral IV Assessment/Plan Chief Complaint/Hosp Course 1. Acute Encephalopathy with Antegrade Amnesia MRI results per verbal conversation with radiologist suggests PRES syndrome CT brain is normal, MRA is normal, HIV and RPR are negative, LP prelim labs are within normal limits, follow-up on culture Neurology consultation appreciated and workup is in progress including EEG Continue Keppra 2. Hypernatremia Patient's sodium is still elevated despite having given D5W, will consult nephrology and will check a urine sodium level Continue with D5W 3. Leukocytosis likely secondary to UTI-resolved Urine culture shows gram-negative rods, follow-up on C&S Continue empiric Rocephin Prophylaxis: SCDs Problems: Subjective 24 Hr Interval Summary Constitutional: disoriented Exam/Review of Systems Vital Signs Vitals Vital Signs Date Time Temp Pulse Resp B/P Pulse Ox O2 Delivery O2 Flow Rate FiO2 10/13/16 12:12 83 10/13/16 08:30 98.6 20 115/67 97 Room Air Intake and Output 10/12/16 10/12/16 10/13/16 15:00 23:00 07:00 Intake Total 1000 ml 2050 ml 400 ml Balance 1000 ml 2050 ml 400 ml Exam Constitutional: alert Psych: confusion Respiratory: clear to auscultation Cardiovascular: regular rate and rhythm Gastrointestinal: soft, No distended Musculoskeletal: nl extremities to inspection Results Result Diagram: 10/13/1622 10/13/16 0622 Results 24 hrs Laboratory Tests Test 10/12/16 17:17 10/13/16 06:22 CSF Tubes Submitted 4 CSF Volume 4.0 CSF Appearance CLEAR CSF Color COLORLESS CSF WBC 2 CSF RBC 0 CSF Cell Count Tube # TUBE#1 CSF Mononuclear Cells % (Auto) 100.0 CSF Polynuclear WBCs (%) 0.0 CSF Glucose 60 CSF Lactate Dehydrogenase 109 CSF Total Protein 30 White Blood Count 9.2 # Red Blood Count 4.43 Hemoglobin 13.1 Hematocrit 40.4 Mean Corpuscular Volume 91.2 Mean Corpuscular Hemoglobin 29.6 Mean Corpuscular Hemoglobin Concent 32.4 Red Cell Distribution Width 12.3 Platelet Count 277 Mean Platelet Volume 11.2 H Neutrophils % 61.0 Lymphocytes % 30.8 Monocytes % 6.8 Eosinophils % 0.8 Basophils % 0.3 Nucleated Red Blood Cells % 0.0 Neutrophils # 5.6 Lymphocytes # 2.8 Monocytes # 0.6 Eosinophils # 0.1 Basophils # 0.0 Nucleated Red Blood Cells # 0.0 Sodium Level 146 H Potassium Level 4.0 Chloride Level 103 Carbon Dioxide Level 27 Anion Gap 20 H Blood Urea Nitrogen 5 L Creatinine 0.65 Glucose Level 105 Calcium Level 9.2 Medications Medications Current Medications Ondansetron HCl (Zofran Inj) 4 mg Q6H PRN IV NAUSEA AND/OR VOMITING; Start at 03:30 Acetaminophen 650 mg 650 mg Q4H PRN PO PAIN AND OR ELEVATED TEMP Last administered on 10/13/16 09:40; Admin Dose 650 MG; Start 10/11/16 at 03:30 Ceftriaxone Sodium (Rocephin) 50 ml @ 100 mls/hr Q24H IVPB Last administered on 10/12/16 16:01; Admin Dose 100 MLS/HR; Start 10/11/16 at 16:00 Levetiracetam (Keppra) 750 mg BID PO Last administered on 10/13/16 09:35; Admin Dose 750 MG; Start 10/12/16 at 13:00 JUANIS TAVERA Oct 13, 2016 13:10
[2016-10-13] MEDS: DEXTROSE 5% 1,000 ML IV SCH ×2 (14:17→21:30)
[2016-10-13] MEDS: CEFTRIAXONE 1 GM/50 ML (PMX) 50 ML IVPB SCH (16:20)
--- NOTE | 2016-10-13 17:02 | CONS ---
Date/Time of Note Date/Time of Note DATE: 10/13/16 TIME: 16:55 Consult Date/Type/Reason Admit Date/Time Oct 11, 2016 at 12:42 Initial Consult Date 10/11/16 Type of Consultation: Neurology Reason for Consultation amnesia, PRES likely seizure Ordering Provider: JUANIS TAVERA Subjective short term memory remains poor today she does recognize me, per family members she repeatedly keeps asking questions no seizures during hospitalization her Na today is 146 CRP elevated to 1.7 Objective Vital Signs Date Time Temp Pulse Resp B/P Pulse Ox O2 Delivery O2 Flow Rate FiO2 10/13/16 16:16 73 10/13/16 08:30 98.6 20 115/67 97 Room Air Intake and Output 10/12/16 10/12/16 10/13/16 15:00 23:00 07:00 Intake Total 1000 ml 2050 ml 400 ml Balance 1000 ml 2050 ml 400 ml Exam awake and alert oriented to self, hospital and day her exam is non-focal on my evaluation per nurse and family she keeps repeating herself, asks the same questions today she recalls me CN: II-XII intact Motor: 5/5 Sensory intact Coordination: no ataxia Reflexes 2+ toes down Results/Medications Result Diagram: 10/13/16 0622 10/13/16 0622 Results 24 hrs Laboratory Tests Test 10/12/16 17:17 10/13/16 06:22 CSF Tubes Submitted 4 CSF Volume 4.0 CSF Appearance CLEAR CSF Color COLORLESS CSF WBC 2 CSF RBC 0 CSF Cell Count Tube # TUBE#1 CSF Mononuclear Cells % (Auto) 100.0 CSF Polynuclear WBCs (%) 0.0 CSF Glucose 60 CSF Lactate Dehydrogenase 109 CSF Total Protein 30 White Blood Count 9.2 # Red Blood Count 4.43 Hemoglobin 13.1 Hematocrit 40.4 Mean Corpuscular Volume 91.2 Mean Corpuscular Hemoglobin 29.6 Mean Corpuscular Hemoglobin Concent 32.4 Red Cell Distribution Width 12.3 Platelet Count 277 Mean Platelet Volume 11.2 H Neutrophils % 61.0 Lymphocytes % 30.8 Monocytes % 6.8 Eosinophils % 0.8 Basophils % 0.3 Nucleated Red Blood Cells % 0.0 Neutrophils # 5.6 Lymphocytes # 2.8 Monocytes # 0.6 Eosinophils # 0.1 Basophils # 0.0 Nucleated Red Blood Cells # 0.0 Sodium Level 146 H Potassium Level 4.0 Chloride Level 103 Carbon Dioxide Level 27 Anion Gap 20 H Blood Urea Nitrogen 5 L Creatinine 0.65 Glucose Level 105 Calcium Level 9.2 Medications Current Medications Ondansetron HCl (Zofran Inj) 4 mg Q6H PRN IV NAUSEA AND/OR VOMITING; Start at 03:30 Acetaminophen 650 mg 650 mg Q4H PRN PO PAIN AND OR ELEVATED TEMP Last administered on 10/13/16 09:40; Admin Dose 650 MG; Start 10/11/16 at 03:30 Ceftriaxone Sodium (Rocephin) 50 ml @ 100 mls/hr Q24H IVPB Last administered on 10/13/16 16:20; Admin Dose 100 MLS/HR; Start 10/11/16 at 16:00 Levetiracetam 750 mg 750 mg BID PO Last administered on 10/13/16 09:35; Admin Dose 750 MG; Start 10/12/16 at 13:00 Dextrose (D5W) 1,000 ml @ 125 mls/hr Q8H IV Last administered on 10/13/16 14: 17; Admin Dose 125 MLS/HR; Start 10/13/16 at 13:30 Assessment/Plan Chief Complaint/Hosp Course 26 yo female with no significant PMHx admitted with unclear episode of possible syncope followed by amnesia, patient has loss of recollection for events after leaving her house for work. Family will attempt to obtain collateral history from coworkers regarding further details of the events. She has persistent short term memory issues. Recommend: MRI Brain w and without contrast temporal lobe cuts- unable to review films, per report findings consistent with PRES continue Keppra 750 mg q12h, PRES often follows seizure would advise atleast treatment with AED for atleast 1 year LP studies unremarkable MRA Head unremarkable CRP elevated 1.7, TAY is negative, ESR: 22 hypernatremia being given D5 1/2 NS, nephrology to evaluate UTI treatment, continue abx suggest discharge planning once metabolic issues stabilized, would recommend repeat MRI Brain with and without contrast in 2 weeks as PRES usually resolves with time supplement b12 may benefit from outpatient cognitive therapy advised patient to abstain from driving she should have close neurology follow up, may see Dr. Matthews as outpatient Problems: MURTAZA BEY MD Oct 13, 2016 17:02
[2016-10-13] MEDS: CYANOCOBALAMIN 500 MCG TAB PO SCH (20:41)
[2016-10-14] VITALS (12 sets, daily range): BP systolic 91–111; BP diastolic 55–70; PULSE 54–86; RESP 16–18
[2016-10-14] MEDS: DEXTROSE 5% 1,000 ML IV SCH ×3 (00:34→20:49)
[2016-10-14] MEDS ORDERED: LORAZEPAM 1 MG TAB PO ONE (03:00)
[2016-10-14 07:23] LABS: BASOPHILS % 0.2 % (0.0-2.0); EOSINOPHILS # 0.1 10^3/ul (0.0-0.5); HEMATOCRIT 39.8 % (37.0-47.0); HEMOGLOBIN 13.1 g/dl (12.0-16.0); LYMPHOCYTES # 2.6 10^3/ul (0.8-2.9); MEAN CORPUSCULAR HEMOGLOBIN 29.8 pg (29.0-33.0); MEAN CORPUSCULAR HGB CONC 32.9 g/dl (32.0-37.0); MEAN CORPUSCULAR VOLUME 90.7 fl (82.0-101.0); MEAN PLATELET VOLUME 11.3 fl (7.4-10.4); MONOCYTE # 0.6 10^3/ul (0.3-0.9); MONOCYTES % 6.7 % (0.0-11.0); NEUTROPHILS % 63.8 % (39.0-77.0); PLATELET COUNT 281 10^3/UL (140-415); RED BLOOD COUNT 4.39 10^6/ul (4.20-5.40); RED CELL DISTRIBUTION WIDTH 11.9 % (11.5-14.5); WHITE BLOOD COUNT 9.4 10^3/ul (4.8-10.8)
[2016-10-14 08:05] LABS: CALCIUM 9.4 mg/dl (8.4-10.2); CREATININE 0.68 mg/dl (0.44-1.00); POTASSIUM 3.8 mmol/L (3.5-5.1)
[2016-10-14] MEDS: LEVETIRACETAM 750 MG TAB PO SCH ×2 (09:08→20:46)
[2016-10-14] MEDS: CYANOCOBALAMIN 500 MCG TAB PO SCH (09:08)
--- NOTE | 2016-10-14 10:16 | QN ---
Documentation Comment Patient seen and examined. Full H&P dictated VIVIANE WALLACE DO Oct 14, 2016 10:16
[2016-10-14 14:50] LABS: ADD UMIC YES; UR ASCORBIC ACID NEGATIVE (NEGATIVE); UR BILIRUBIN (Dip) NEGATIVE (NEGATIVE); UR BLOOD (Dip) 2+ mg/dL (NEGATIVE); UR CLARITY CLEAR (CLEAR); UR COLOR STRAW (YELLOW); UR GLUCOSE (Dip) NEGATIVE (NEGATIVE); UR KETONES (Dip) NEGATIVE (NEGATIVE); UR LEUKOCYTE ESTERASE (Dip) NEGATIVE Leu/ul (NEGATIVE); UR NITRITE (Dip) NEGATIVE (NEGATIVE); UR RBC 1 /HPF (0-5); UR SPECIFIC GRAVITY (Dip) 1.004 (1.003-1.030); UR TOTAL PROTEIN (Dip) NEGATIVE (NEGATIVE); UR UROBILINOGEN (Dip) NEGATIVE (NEGATIVE)
[2016-10-14] MEDS: CEFTRIAXONE 1 GM/50 ML (PMX) 50 ML IVPB SCH (16:00)
[2016-10-14 17:36] LABS: BACT AG SOURCE CEREBROSPINAL FLUID; BACT AG STREP GP B NOT DETECTED; BACT AG STREP PNEUMONIAE NOT DETECTED
--- NOTE | 2016-10-14 18:12 | PN ---
Date/Time of Note Date/Time of Note DATE: 10/14/16 TIME: 18:03 Assessment/Plan VTE Prophylaxis VTE Prophylaxis Intervention: SCD's Lines/Catheters IV C[facility]ter Type [facility]from [facility] Peripheral IV Urinary Cath still in place: No Assessment/Plan Chief Complaint/Hosp Course 1. Acute Encephalopathy with Antegrade Amnesia Patient continues to have short-term memory loss but remember things in the past MRI results per verbal conversation with radiologist suggests PRES syndrome, of note per discussion with neurology this could be secondary to an unwitnessed seizure, patient is not on any immunosuppressants which are associated with PRES syndrome CT brain is normal, MRA is normal, HIV and RPR are negative, LP prelim labs are within normal limits, follow-up on HSV in CSF fluid Neurology consultation appreciated EEG shows seizure activity in the temporal region, recommendation is patient ultimately be discharged home with Keppra 750 p.o. twice daily Continue Keppra at this time 2. 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 Leukocytosis secondary to UTI-resolved Urine culture shows E. coli Continue Rocephin and consider discontinuing tomorrow Prophylaxis: SCDs Discharge planning: Currently waiting for HSV in CSF fluid, and if positive patient will need acyclovir. Regardless patient will need to be discharged home with Keppra 750 mg p.o. twice daily and will need an MRI in a few months to evaluate for resolution of PRES. Also waiting for improvement in her diabetes insipidus Problems: Subjective 24 Hr Interval Summary Neurologic: confusion Exam/Review of Systems Vital Signs Vitals Vital Signs Date Time Temp Pulse Resp B/P Pulse Ox O2 Delivery O2 Flow Rate FiO2 10/14/16 16:03 97.8 66 18 108/60 97 10/13/16 08:30 Room Air Intake and Output 10/13/16 10/13/16 10/14/16 15:00 23:00 07:00 Intake Total 550 ml 2225 ml Balance 550 ml 2225 ml Exam Constitutional: alert Psych: confusion Respiratory: clear to auscultation Cardiovascular: regular rate and rhythm Gastrointestinal: soft, No distended Musculoskeletal: nl extremities to inspection Results Result Diagram: 10/14/16 0612 10/14/16 0611 Results 24 hrs Laboratory Tests Test 10/14/16 06:11 10/14/16 06:12 10/14/16 14:00 Sodium Level 145 H Potassium Level 3.8 Chloride Level 103 Carbon Dioxide Level 27 Anion Gap 19 H Blood Urea Nitrogen 5 L Creatinine 0.68 Glucose Level 105 Calcium Level 9.4 White Blood Count 9.4 Red Blood Count 4.39 Hemoglobin 13.1 Hematocrit 39.8 Mean Corpuscular Volume 90.7 Mean Corpuscular Hemoglobin 29.8 Mean Corpuscular Hemoglobin Concent 32.9 Red Cell Distribution Width 11.9 Platelet Count 281 Mean Platelet Volume 11.3 H Neutrophils % 63.8 Lymphocytes % 28.0 Monocytes % 6.7 Eosinophils % 1.0 Basophils % 0.2 Nucleated Red Blood Cells % 0.0 Neutrophils # 6.0 Lymphocytes # 2.6 Monocytes # 0.6 Eosinophils # 0.1 Basophils # 0.0 Nucleated Red Blood Cells # 0.0 Osmolality 288 Urine Color STRAW Urine Clarity CLEAR Urine pH 7.0 Urine Specific [place] 1.004 Urine Ketones NEGATIVE Urine Nitrite NEGATIVE Urine Bilirubin NEGATIVE Urine Urobilinogen NEGATIVE Urine Leukocyte Esterase NEGATIVE Urine Microscopic RBC 1 Urine Microscopic WBC 1 Urine Hemoglobin 2+ H Urine Random Creatinine 33.92 Urine Random Sodium 47 Urine Glucose NEGATIVE Urine Total Protein 13.0 H Medications Medications Current Medications Ondansetron HCl (Zofran Inj) 4 mg Q6H PRN IV NAUSEA AND/OR VOMITING; Start at 03:30 Acetaminophen 650 mg 650 mg Q4H PRN PO PAIN AND OR ELEVATED TEMP Last administered on 10/13/16 20:41; Admin Dose 650 MG; Start 10/11/16 at 03:30 Ceftriaxone Sodium (Rocephin) 50 ml @ 100 mls/hr Q24H IVPB Last administered on 10/13/16 16:20; Admin Dose 100 MLS/HR; Start 10/11/16 at 16:00 Levetiracetam 750 mg 750 mg BID PO Last administered on 10/14/16 09:08; Admin Dose 750 MG; Start 10/12/16 at 13:00 Dextrose (D5W) 1,000 ml @ 125 mls/hr Q8H IV Last administered on 10/14/16 10: 41; Admin Dose 125 MLS/HR; Start 10/13/16 at 13:30 Cyanocobalamin (Vitamin B12) 1,000 mcg DAILY PO Last administered on 10/14/16t 09:08; Admin Dose 1,000 MCG; Start 10/13/16 at 18:00 JUANIS TAVERA Oct 14, 2016 18:12
--- NOTE | 2016-10-14 18:22 | CONS ---
Date/Time of Note Date/Time of Note DATE: 10/14/16 TIME: 18:20 Consult Date/Type/Reason Admit Date/Time Oct 11, 2016 at 12:42 Initial Consult Date 10/11/16 Type of Consultation: Neurology Reason for Consultation PRES, seizure encephalopathy Ordering Provider: JUANIS TAVERA Subjective still confused poor short term memory HSV PCR pending in CSF EEG showed right temporal sharps Objective Vital Signs Date Time Temp Pulse Resp B/P Pulse Ox O2 Delivery O2 Flow Rate FiO2 10/14/16 16:03 97.8 66 18 108/60 97 10/13/16 08:30 Room Air Intake and Output 10/13/16 10/13/16 10/14/16 15:00 23:00 07:00 Intake Total 550 ml 2225 ml Balance 550 ml 2225 ml Exam awake alert oriented to self hospital family short term memory poor no aphasia or neglect CN; II-XII intact Motor 5/5 UE and LE Tone wnl, Sensory intact Reflexes 2+ throughout toes down coordination no ataxia Results/Medications Result Diagram: 10/14/16 0612 10/14/16 0611 Results 24 hrs Laboratory Tests Test 10/14/16 06:11 10/14/16 06:12 10/14/16 14:00 Sodium Level 145 H Potassium Level 3.8 Chloride Level 103 Carbon Dioxide Level 27 Anion Gap 19 H Blood Urea Nitrogen 5 L Creatinine 0.68 Glucose Level 105 Calcium Level 9.4 White Blood Count 9.4 Red Blood Count 4.39 Hemoglobin 13.1 Hematocrit 39.8 Mean Corpuscular Volume 90.7 Mean Corpuscular Hemoglobin 29.8 Mean Corpuscular Hemoglobin Concent 32.9 Red Cell Distribution Width 11.9 Platelet Count 281 Mean Platelet Volume 11.3 H Neutrophils % 63.8 Lymphocytes % 28.0 Monocytes % 6.7 Eosinophils % 1.0 Basophils % 0.2 Nucleated Red Blood Cells % 0.0 Neutrophils # 6.0 Lymphocytes # 2.6 Monocytes # 0.6 Eosinophils # 0.1 Basophils # 0.0 Nucleated Red Blood Cells # 0.0 Osmolality 288 Urine Color STRAW Urine Clarity CLEAR Urine pH 7.0 Urine Specific [place] 1.004 Urine Ketones NEGATIVE Urine Nitrite NEGATIVE Urine Bilirubin NEGATIVE Urine Urobilinogen NEGATIVE Urine Leukocyte Esterase NEGATIVE Urine Microscopic RBC 1 Urine Microscopic WBC 1 Urine Hemoglobin 2+ H Urine Random Creatinine 33.92 Urine Random Sodium 47 Urine Glucose NEGATIVE Urine Total Protein 13.0 H Medications Current Medications Ondansetron HCl (Zofran Inj) 4 mg Q6H PRN IV NAUSEA AND/OR VOMITING; Start at 03:30 Acetaminophen 650 mg 650 mg Q4H PRN PO PAIN AND OR ELEVATED TEMP Last administered on 10/13/16 20:41; Admin Dose 650 MG; Start 10/11/16 at 03:30 Ceftriaxone Sodium (Rocephin) 50 ml @ 100 mls/hr Q24H IVPB Last administered on 10/13/16 16:20; Admin Dose 100 MLS/HR; Start 10/11/16 at 16:00 Levetiracetam 750 mg 750 mg BID PO Last administered on 10/14/16 09:08; Admin Dose 750 MG; Start 10/12/16 at 13:00 Dextrose (D5W) 1,000 ml @ 125 mls/hr Q8H IV Last administered on 10/14/16 10: 41; Admin Dose 125 MLS/HR; Start 10/13/16 at 13:30 Cyanocobalamin (Vitamin B12) 1,000 mcg DAILY PO Last administered on 10/14/16 09:08; Admin Dose 1,000 MCG; Start 10/13/16 at 18:00 Assessment/Plan Chief Complaint/Hosp Course 26 yo female with no significant PMHx admitted with unclear episode of possible syncope followed by amnesia, patient has loss of recollection for events after leaving her house for work. Family will attempt to obtain collateral history from coworkers regarding further details of the events. She has persistent short term memory issues. Recommend: MRI Brain w and without contrast temporal lobe cuts- unable to review films, per report findings consistent with PRES continue Keppra 750 mg q12h, PRES often follows seizure would advise atleast treatment with AED for atleast 1 year LP studies unremarkable MRA Head unremarkable CRP elevated 1.7, TAY is negative, ESR: 22 hypernatremia being given D5 1/2 NS, nephrology to evaluate UTI treatment, continue abx suggest discharge planning once metabolic issues stabilized, would recommend repeat MRI Brain with and without contrast in 2 weeks as PRES usually resolves with time supplement b12 may benefit from outpatient cognitive therapy advised patient to abstain from driving she should have close neurology follow up, may see Dr. Matthews as outpatient Problems: MURTAZA BEY MD Oct 14, 2016 18:22
[2016-10-14] MEDS ORDERED: LORAZEPAM 0.5 MG TAB PO PRN (19:30)
[2016-10-15] VITALS (13 sets, daily range): BP systolic 102–120; BP diastolic 58–73; PULSE 66–98; RESP 16–20
[2016-10-15] MEDS: DEXTROSE 5% 1,000 ML IV SCH (05:01)
[2016-10-15 07:32] LABS: BASOPHILS % 0.3 % (0.0-2.0); EOSINOPHILS # 0.1 10^3/ul (0.0-0.5); HEMATOCRIT 41.7 % (37.0-47.0); LYMPHOCYTES # 2.8 10^3/ul (0.8-2.9); MEAN CORPUSCULAR HEMOGLOBIN 29.9 pg (29.0-33.0); MEAN CORPUSCULAR HGB CONC 33.6 g/dl (32.0-37.0); MEAN CORPUSCULAR VOLUME 89.1 fl (82.0-101.0); MEAN PLATELET VOLUME 11.1 fl (7.4-10.4); MONOCYTE # 0.7 10^3/ul (0.3-0.9); MONOCYTES % 6.7 % (0.0-11.0); NEUTROPHIL # 7.1 10^3/ul (1.6-7.5); NEUTROPHILS % 65.6 % (39.0-77.0); PLATELET COUNT 278 10^3/UL (140-415); RED BLOOD COUNT 4.68 10^6/ul (4.20-5.40); RED CELL DISTRIBUTION WIDTH 12.1 % (11.5-14.5); WHITE BLOOD COUNT 10.8 10^3/ul (4.8-10.8)
[2016-10-15 07:52] LABS: CALCIUM 9.7 mg/dl (8.4-10.2); CREATININE 0.66 mg/dl (0.44-1.00); PHOSPHORUS 4.3 mg/dl (2.5-4.9); POTASSIUM 3.9 mmol/L (3.5-5.1)
[2016-10-15] MEDS: CYANOCOBALAMIN 500 MCG TAB PO SCH (08:23)
[2016-10-15] MEDS: LEVETIRACETAM 750 MG TAB PO SCH ×2 (08:23→21:00)
--- NOTE | 2016-10-15 11:24 | PN ---
Date/Time of Note Date/Time of Note DATE: 10/15/16 TIME: 11:20 Assessment/Plan Lines/Catheters IV Catheter Type (from [facility]): Peripheral IV Urinary Cath still in place: No Assessment/Plan Chief Complaint/Hosp Course 1. 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 Imaging studies been reviewed Follow-up with neurology UTI continue current antibiotic regimen Problems: Subjective 24 Hr Interval Summary Free Text/Dictation Patient seen and examined Patient states she has copious amounts of urinary output She admits to drinking copious amounts of water during the days normally at work Exam/Review of Systems Vital Signs Vitals Vital Signs Date Time Temp Pulse Resp B/P Pulse Ox O2 Delivery O2 Flow Rate FiO2 10/15/16 08:07 66 10/15/16 07:52 98.6 18 102/61 98 10/13/16 08:30 Room Air Intake and Output 10/14/16 10/14/16 10/15/16 15:00 23:00 07:00 Intake Total 750 ml 1000 ml Output Total 1100 ml Balance -350 ml 1000 ml Exam Constitutional: alert Psych: confusion Respiratory: clear to auscultation Cardiovascular: regular rate and rhythm Gastrointestinal: soft, No distended Musculoskeletal: nl extremities to inspection Results Result Diagram: 10/15/16 0644 10/15/16 0644 Results 24 hrs Laboratory Tests Test 10/14/16 14:00 10/15/16 06:44 10/15/16 09:31 Urine Color STRAW Urine Clarity CLEAR Urine pH 7.0 Urine Specific [place] 1.004 Urine Ketones NEGATIVE Urine Nitrite NEGATIVE Urine Bilirubin NEGATIVE Urine Urobilinogen NEGATIVE Urine Leukocyte Esterase NEGATIVE Urine Microscopic RBC 1 Urine Microscopic WBC 1 Urine Hemoglobin 2+ H Urine Osmolality 159 L Urine Random Creatinine 33.92 Urine Random Sodium 47 Urine Glucose NEGATIVE Urine Total Protein 13.0 H White Blood Count 10.8 Red Blood Count 4.68 Hemoglobin 14.0 Hematocrit 41.7 Mean Corpuscular Volume 89.1 Mean Corpuscular Hemoglobin 29.9 Mean Corpuscular Hemoglobin Concent 33.6 Red Cell Distribution Width 12.1 Platelet Count 278 Mean Platelet Volume 11.1 H Neutrophils % 65.6 Lymphocytes % 26.0 Monocytes % 6.7 Eosinophils % 1.0 Basophils % 0.3 Nucleated Red Blood Cells % 0.0 Neutrophils # 7.1 Lymphocytes # 2.8 Monocytes # 0.7 Eosinophils # 0.1 Basophils # 0.0 Nucleated Red Blood Cells # 0.0 Sodium Level 142 Potassium Level 3.9 Chloride Level 99 Carbon Dioxide Level 28 Anion Gap 19 H Blood Urea Nitrogen 8 Creatinine 0.66 Glucose Level 98 Calcium Level 9.7 Phosphorus Level 4.3 Magnesium Level 2.0 Lab Scanned Report REFERENCE LAB Medications Medications Current Medications Ondansetron HCl (Zofran Inj) 4 mg Q6H PRN IV NAUSEA AND/OR VOMITING; Start at 03:30 Acetaminophen 650 mg 650 mg Q4H PRN PO PAIN AND OR ELEVATED TEMP Last administered on 10/13/16 20:41; Admin Dose 650 MG; Start 10/11/16 at 03:30 Ceftriaxone Sodium (Rocephin) 50 ml @ 100 mls/hr Q24H IVPB Last administered on 10/14/16 16:00; Admin Dose 100 MLS/HR; Start 10/11/16 at 16:00 Levetiracetam 750 mg 750 mg BID PO Last administered on 10/15/16 08:23; Admin Dose 750 MG; Start 10/12/16 at 13:00 Dextrose (D5W) 1,000 ml @ 125 mls/hr Q8H IV Last administered on 10/15/16 05: 01; Admin Dose 125 MLS/HR; Start 10/13/16 at 13:30 Cyanocobalamin (Vitamin B12) 1,000 mcg DAILY PO Last administered on 10/15/16 08:23; Admin Dose 1,000 MCG; Start 10/13/16 at 18:00 Lorazepam (Ativan) 0.5 mg HS PRN PO INSOMNIA Last administered on 10/14/16 23: 16; Admin Dose 0.5 MG; Start 10/14/16 at 19:30 VIVIANE WALLACE DO Oct 15, 2016 11:24
--- NOTE | 2016-10-15 11:30 | PN ---
Date/Time of Note Date/Time of Note DATE: 10/15/16 TIME: 11:29 Assessment/Plan VTE Prophylaxis VTE Prophylaxis Intervention: SCD's Lines/Catheters IV [facility]ter Type (from [facility]): Peripheral IV Urinary Cath still in place: No Assessment/Plan Chief Complaint/Hosp Course 1. Acute encephalopathy with anterograde amnesia. Etiology unclear. Brain imaging studies negative. Status post lumbar puncture. Awaiting HSV PCR. Electroencephalography showing a right temporal lobe sharps. On anticonvulsants. Being followed by neurology. 2. Urinary tract infection. Urine culture positive for E. coli. Continue antibiotics. 3. Hypernatremia. Resolved. 4. Diabetes insipidus. Etiology unclear. Will obtain an endocrinology evaluation as per the request of cutter hand. 5. Fluids, electrolytes, and nutrition. Regular diet. 6. DVT prophylaxis. Bilateral sequential compression devices. 7. Gastrointestinal prophylaxis. Not indicated. 8. Plan. Continue inpatient monitoring. Obtain endocrinology evaluation for underlying diabetes insipidus. Case discussed with Dr. Judd Problems: Subjective 24 Hr Interval Summary Free Text/Dictation Complains of severe headache. Exam/Review of Systems Vital Signs Vitals Vital Signs Date Time Temp Pulse Resp B/P Pulse Ox O2 Delivery O2 Flow Rate FiO2 10/15/16 08:07 66 10/15/16 07:52 98.6 18 102/61 98 10/13/16 08:30 Room Air Intake and Output 10/14/16 10/14/16 10/15/16 15:00 23:00 07:00 Intake Total 750 ml 1000 ml Output Total 1100 ml Balance -350 ml 1000 ml Exam General: Adequately build 26 year-old female lying in bed in no apparent distress. HEENT: Normocephalic, atraumatic. Eyes: Anicteric sclerae, conjunctivae clear. ENT: Nasal septum midline, oral mucosa moist. Neck supple, no JVD noticed. Respiratory: Bilaterally clear breath sounds. No use of accessory muscles of respiration. No adventitious breath sounds. Cardiovascular: S1, S2 heard. No murmurs or gallops. Abdomen: Soft, nontender, and nondistended. Bowel sounds positive in all 4 quadrants. Genitourinary: Deferred. Extremities: No cyanosis, no clubbing, no edema. Peripheral pulses palpable. Neurologic: Cranial nerves II through XII grossly intact. The patient is awake, alert, and oriented. Short-term memory loss. Skin: Normal skin turgor. No skin rashes. Results Result Diagram: 10/15/16 0644 10/15/16 0644 Results 24 hrs Laboratory Tests Test 10/14/16 14:00 10/15/16 06:44 10/15/16 09:31 Urine Color STRAW Urine Clarity CLEAR Urine pH 7.0 Urine Specific [place] 1.004 Urine Ketones NEGATIVE Urine Nitrite NEGATIVE Urine Bilirubin NEGATIVE Urine Urobilinogen NEGATIVE Urine Leukocyte Esterase NEGATIVE Urine Microscopic RBC 1 Urine Microscopic WBC 1 Urine Hemoglobin 2+ H Urine Osmolality 159 L Urine Random Creatinine 33.92 Urine Random Sodium 47 Urine Glucose NEGATIVE Urine Total Protein 13.0 H White Blood Count 10.8 Red Blood Count 4.68 Hemoglobin 14.0 Hematocrit 41.7 Mean Corpuscular Volume 89.1 Mean Corpuscular Hemoglobin 29.9 Mean Corpuscular Hemoglobin Concent 33.6 Red Cell Distribution Width 12.1 Platelet Count 278 Mean Platelet Volume 11.1 H Neutrophils % 65.6 Lymphocytes % 26.0 Monocytes % 6.7 Eosinophils % 1.0 Basophils % 0.3 Nucleated Red Blood Cells % 0.0 Neutrophils # 7.1 Lymphocytes # 2.8 Monocytes # 0.7 Eosinophils # 0.1 Basophils # 0.0 Nucleated Red Blood Cells # 0.0 Sodium Level 142 Potassium Level 3.9 Chloride Level 99 Carbon Dioxide Level 28 Anion Gap 19 H Blood Urea Nitrogen 8 Creatinine 0.66 Glucose Level 98 Calcium Level 9.7 Phosphorus Level 4.3 Magnesium Level 2.0 Lab Scanned Report REFERENCE LAB Medications Medications Current Medications Ondansetron HCl (Zofran Inj) 4 mg Q6H PRN IV NAUSEA AND/OR VOMITING; Start at 03:30 Acetaminophen 650 mg 650 mg Q4H PRN PO PAIN AND OR ELEVATED TEMP Last administered on 10/13/16 20:41; Admin Dose 650 MG; Start 10/11/16 at 03:30 Ceftriaxone Sodium (Rocephin) 50 ml @ 100 mls/hr Q24H IVPB Last administered on 10/14/16 16:00; Admin Dose 100 MLS/HR; Start 10/11/16 at 16:00 Levetiracetam (Keppra) 750 mg BID PO Last administered on 10/15/16 08:23; Admin Dose 750 MG; Start 10/12/16 at 13:00 Cyanocobalamin (Vitamin B12) 1,000 mcg DAILY PO Last administered on 10/15/16 08:23; Admin Dose 1,000 MCG; Start 10/13/16 at 18:00 Lorazepam (Ativan) 0.5 mg HS PRN PO INSOMNIA Last administered on 10/14/16 23: 16; Admin Dose 0.5 MG; Start 10/14/16 at 19:30 Desmopressin Acetate (Ddavp) 0.05 mg BID PO ; Start 10/15/16 at 12:30 CHEYENNE RICHEY NP Oct 15, 2016 11:30
--- NOTE | 2016-10-15 11:58 | CONS ---
Date/Time of Note Date/Time of Note DATE: 10/15/16 TIME: 11:56 Consult Date/Type/Reason Admit Date/Time Oct 11, 2016 at 12:42 Initial Consult Date 10/11/16 Type of Consultation: Neurology Reason for Consultation encephalopathy, PRES, seizures Ordering Provider: JUANIS TAVERA Subjective c/o headache today memory gradually improving Objective Vital Signs Date Time Temp Pulse Resp B/P Pulse Ox O2 Delivery O2 Flow Rate FiO2 10/15/16 08:07 66 10/15/16 07:52 98.6 18 102/61 98 10/13/16 08:30 Room Air Intake and Output 10/14/16 10/14/16 10/15/16 14:59 22:59 06:59 Intake Total 750 ml 1000 ml Output Total 1100 ml Balance -350 ml 1000 ml Exam awake alert oriented to self hospital family short term memory poor no aphasia or neglect CN; II-XII intact Motor 5/5 UE and LE Tone wnl, Sensory intact Reflexes 2+ throughout toes down coordination no ataxia Results/Medications Result Diagram: 10/15/1644 10/15/16 0644 Results 24 hrs Laboratory Tests Test 10/14/16 14:00 10/15/16 06:44 10/15/16 09:31 Urine Color STRAW Urine Clarity CLEAR Urine pH 7.0 Urine Specific [place] 1.004 Urine Ketones NEGATIVE Urine Nitrite NEGATIVE Urine Bilirubin NEGATIVE Urine Urobilinogen NEGATIVE Urine Leukocyte Esterase NEGATIVE Urine Microscopic RBC 1 Urine Microscopic WBC 1 Urine Hemoglobin 2+ H Urine Osmolality 159 L Urine Random Creatinine 33.92 Urine Random Sodium 47 Urine Glucose NEGATIVE Urine Total Protein 13.0 H White Blood Count 10.8 Red Blood Count 4.68 Hemoglobin 14.0 Hematocrit 41.7 Mean Corpuscular Volume 89.1 Mean Corpuscular Hemoglobin 29.9 Mean Corpuscular Hemoglobin Concent 33.6 Red Cell Distribution Width 12.1 Platelet Count 278 Mean Platelet Volume 11.1 H Neutrophils % 65.6 Lymphocytes % 26.0 Monocytes % 6.7 Eosinophils % 1.0 Basophils % 0.3 Nucleated Red Blood Cells % 0.0 Neutrophils # 7.1 Lymphocytes # 2.8 Monocytes # 0.7 Eosinophils # 0.1 Basophils # 0.0 Nucleated Red Blood Cells # 0.0 Sodium Level 142 Potassium Level 3.9 Chloride Level 99 Carbon Dioxide Level 28 Anion Gap 19 H Blood Urea Nitrogen 8 Creatinine 0.66 Glucose Level 98 Calcium Level 9.7 Phosphorus Level 4.3 Magnesium Level 2.0 Lab Scanned Report REFERENCE LAB Medications Current Medications Ondansetron HCl (Zofran Inj) 4 mg Q6H PRN IV NAUSEA AND/OR VOMITING; Start at 03:30 Acetaminophen 650 mg 650 mg Q4H PRN PO PAIN AND OR ELEVATED TEMP Last administered on 10/13/16 20:41; Admin Dose 650 MG; Start 10/11/16 at 03:30 Ceftriaxone Sodium (Rocephin) 50 ml @ 100 mls/hr Q24H IVPB Last administered on 10/14/16 16:00; Admin Dose 100 MLS/HR; Start 10/11/16 at 16:00 Levetiracetam (Keppra) 750 mg BID PO Last administered on 10/15/16 08:23; Admin Dose 750 MG; Start 10/12/16 at 13:00 Cyanocobalamin (Vitamin B12) 1,000 mcg DAILY PO Last administered on 10/15/16 08:23; Admin Dose 1,000 MCG; Start 10/13/16 at 18:00 Lorazepam (Ativan) 0.5 mg HS PRN PO INSOMNIA Last administered on 10/14/16 23: 16; Admin Dose 0.5 MG; Start 10/14/16 at 19:30 Desmopressin Acetate (Ddavp) 0.05 mg BID PO ; Start 10/15/16 at 12:30 Assessment/Plan Chief Complaint/Hosp Course 26 yo female with no significant PMHx admitted with unclear episode of possible syncope followed by amnesia, patient has loss of recollection for events after leaving her house for work. Family will attempt to obtain collateral history from coworkers regarding further details of the events. She has persistent short term memory issues. awaiting HSV PCR. Being evaluated by nephrology for suspected DI. Recommend: MRI Brain w and without contrast temporal lobe cuts- unable to review films, per report findings consistent with PRES continue Keppra 750 mg q12h, PRES often follows seizure would advise atleast treatment with AED for atleast 1 year LP studies unremarkable, HSV PCR is pending MRA Head unremarkable CRP elevated 1.7, TAY is negative, ESR: 22 hypernatremia likely DI UTI treatment, continue abx suggest discharge planning once metabolic issues stabilized, would recommend repeat MRI Brain with and without contrast in 2 weeks as PRES usually resolves with time supplement b12 may benefit from outpatient cognitive therapy advised patient to abstain from driving she should have close neurology follow up, may see Dr. Matthews as outpatient Problems: MURTAZA BEY MD Oct 15, 2016 11:58
[2016-10-15] MEDS ORDERED: DESMOPRESSIN 0.1 MG TAB PO SCH (12:30)
[2016-10-15] MEDS: ACETAMINOPHEN 325 MG TAB PO PRN (12:45)
[2016-10-15 14:19] LABS: HERPES SIMPLEX 1 DNA NOT DETECTED; HERPES SIMPLEX 2 DNA NOT DETECTED; HERPES SIMPLEX PCR SOURCE CEREBROSPINAL FLUID
[2016-10-15] MEDS: CEFTRIAXONE 1 GM/50 ML (PMX) 50 ML IVPB SCH (15:44)
[2016-10-16] VITALS (10 sets, daily range): BP systolic 95–108; BP diastolic 52–66; PULSE 61–80; RESP 17–19
--- NOTE | 2016-10-16 06:50 | CONS ---
Date/Time of Note Date/Time of Note DATE: 10/15/16 TIME: 18:30 Late entry Assessment/Plan Assessment/Plan Problems: (1) Hypernatremia Status: Acute Comment: It is difficult to evaluate this as a case of potential DI given the extremely mild nature of the patient's hypernatremia. Serum sodium was never over 146 and I would not have evaluated her at that level. However, given the disparity between serum and urine osmolality and the patient's report of polyuria, DI should be considered. It is possible that whatever happened to her neurologically has caused a temporary state of mild DI. It is even possible that the patient has chronic DI which she self-treats w/ water all of the time and on the day in question, reduced her water intake, suffered an acute hyperosmolar episode resulting in AMS. However, again I would have expected her initial sodium to have been higher in such a case. It does not seem likely that if she had typical DI that 1/2NS at 125 mL/hr would have kept her Na levels from rising; usually, ongoing losses also have to be accounted for to prevent this. What I recommend at this time is this: now that it has our attention I believe we should monitor closely, stopping desmopressin, and watch I/O strictly, and monitor sodium levels closely. If she appears to have evidence of true DI then we can place her on treatment. The other issue is the imaging of the pituitary. It appears an MRI/MRA was done, but only a report of the MRA exists. Will try to get a reading of MRI with regard to sella turcica. If cannot, and DI is ruled in, may have to reimage. Consultation Date/Type/Reason Admit Date/Time Oct 11, 2016 at 12:42 Date of Consultation: Oct 15, 2016 Type of Consultation: Endocrinology Reason for Consultation Diabetes Insipidis Referring Provider: CHEYENNE RICHEY NP Hx of Present Illness 26 y/o H F w/o sig. PMH in [facility] until 5 days ago when she went was leaving for typical work day. Got ride to work. After that pt. has no clear memory until waking in hospital bed post-admission. Father notes pt. called him sounding frantic and saying "she fell" and asking if he or her sister could come and get her. When sister came, she found pt. in some kind of unresponsive state. Brought pt. home. Pt. continued to be minimally responsive. Tried to give pt. something to drink but pt. vomited it up. At that point father decided to bring her to ER. He notes that she awoke and seemed to become more herself when an IV was placed in the ER although her conversation was unfocused, confused, and repetitive. As noted above, pt. has no active memory of ER, recalling nothing until being admitted after that. CT and MRA of brain were negative. Following admit pt. was noted to have mildly elevated sodium levels. Initially were 144 but then increased as high as 146 mEq/dL. This continued despite pt. receiving hypotonic IVF until yesterday am when sodium was spontaneously 142 mEq/dL. Nephrology was called and did urinary testing and noted that urine osmolality was low. Diagnosed pt. w/ DI and started pt. on oral desmopressin which she received yesterday in am for first time. Pt. does note reduction in urine output since receiving this med. Endo called to follow up. Constitutional: improved, no complaints Eyes: no complaints ENT: no complaints Respiratory: no complaints Cardiovascular: no complaints Gastrointestinal: no complaints Genitourinary: no complaints Musculoskeletal: no complaints Neurologic: no complaints Endocrine: polyuria Past Medical History Medical History: no pertinent history Past Surgical History Past Surgical Hx: no surgical history Family History Significant Family History: cancer (breast in aunt), diabetes (grandmother), hypertension (father) Social History b. [place], college grad, works as [employer] and lives w/ family, single, no children Alcohol Use: none Smoking Status: Never smoker Drug Use: none Exam/Review of Systems Vital Signs Vitals VS - Last 72 Hours, by Label Date Time Temp Pulse Resp B/P Pulse Ox O2 Delivery O2 Flow Rate FiO2 10/16/16 04:17 75 10/16/16 03:57 98.7 71 17 95/53 97 10/16/16 01:57 98.4 71 17 100/52 93 10/16/16 00:00 69 10/15/16 20:46 87 10/15/16 20:00 98.2 20 106/68 96 Room Air 10/15/16 16:12 98 10/15/16 15:49 98.3 104 18 120/73 97 10/15/16 12:05 72 10/15/16 11:56 97.5 72 19 106/60 98 10/15/16 08:07 66 10/15/16 08:00 98.6 80 17 109/67 98 10/15/16 07:52 98.6 71 18 102/61 98 10/15/16 04:05 67 10/15/16 04:00 98.7 76 16 103/64 96 10/15/16 00:37 98.6 78 16 111/58 94 10/15/16 00:07 73 10/14/16 20:41 98.9 76 16 110/58 95 10/14/16 20:00 81 10/14/16 16:03 97.8 66 18 108/60 97 10/14/16 16:01 82 10/14/16 12:21 82 10/14/16 11:43 98.3 76 18 103/55 97 10/14/16 08:15 54 10/14/16 08:07 98.1 73 17 104/68 98 10/14/16 05:31 98.4 54 16 91/63 96 10/14/16 04:05 65 10/14/16 00:08 98.2 68 18 111/70 97 10/14/16 00:00 86 10/13/16 20:16 98.4 71 16 106/64 94 10/13/16 20:00 74 10/13/16 16:16 73 10/13/16 12:12 83 10/13/16 08:30 98.6 20 115/67 97 Room Air 10/13/16 08:07 56 Vital Signs Date Time Temp Pulse Resp B/P Pulse Ox O2 Delivery O2 Flow Rate FiO2 10/16/16 04:17 75 10/16/16 03:57 98.7 17 95/53 97 10/15/16 20:00 Room Air Intake and Output 10/15/16 10/15/16 10/16/16 15:00 23:00 07:00 Intake Total 650 ml 1200 ml Output Total 1200 ml 2100 ml Balance -550 ml -900 ml Exam Constitutional: alert, oriented, well developed Psych: nl mood/affect, no complaints Eyes: EOMI, PERRL, nl conjunctiva, nl lids, nl sclera ENMT: mucosa pink and moist, nl external ears & nose Neck: non-tender, supple, No bruits, No masses, No thyromegaly Respiratory: clear to auscultation, normal air movement Cardiovascular: nl pulses, regular rate and rhythm, No edema, No murmurs/extra sounds, No rub Gastrointestinal: bowel sounds, nl liver, spleen, non-tender, soft, No mass, No rebound or guarding Musculoskeletal: nl extremities to inspection Extremities: normal pulses, No clubbing, No cyanosis, No edema Neurological: SECRETARIAL STENOGRAPHER II-XII intact, nl mental status, nl speech, nl strength Results Result Diagram: 10/15/16 0644 10/15/16 1526 Results 24 hrs Laboratory Tests Test 10/15/16 06:44 10/15/16 09:31 10/15/16 15:26 White Blood Count 10.8 Red Blood Count 4.68 Hemoglobin 14.0 Hematocrit 41.7 Mean Corpuscular Volume 89.1 Mean Corpuscular Hemoglobin 29.9 Mean Corpuscular Hemoglobin Concent 33.6 Red Cell Distribution Width 12.1 Platelet Count 278 Mean Platelet Volume 11.1 H Neutrophils % 65.6 Lymphocytes % 26.0 Monocytes % 6.7 Eosinophils % 1.0 Basophils % 0.3 Nucleated Red Blood Cells % 0.0 Neutrophils # 7.1 Lymphocytes # 2.8 Monocytes # 0.7 Eosinophils # 0.1 Basophils # 0.0 Nucleated Red Blood Cells # 0.0 Sodium Level 142 143 Potassium Level 3.9 Chloride Level 99 Carbon Dioxide Level 28 Anion Gap 19 H Blood Urea Nitrogen 8 Creatinine 0.66 Glucose Level 98 Calcium Level 9.7 Phosphorus Level 4.3 Magnesium Level 2.0 Lab Scanned Report REFERENCE LAB Medications Medications Current Medications Ondansetron HCl (Zofran Inj) 4 mg Q6H PRN IV NAUSEA AND/OR VOMITING; Start at 03:30 Acetaminophen 650 mg 650 mg Q4H PRN PO PAIN AND OR ELEVATED TEMP Last administered on 10/15/16 12:45; Admin Dose 650 MG; Start 10/11/16 at 03:30 Ceftriaxone Sodium (Rocephin) 50 ml @ 100 mls/hr Q24H IVPB Last administered on 10/15/16 15:44; Admin Dose 100 MLS/HR; Start 10/11/16 at 16:00 Levetiracetam (Keppra) 750 mg BID PO Last administered on 7/24/17at 21:00; Admin Dose 750 MG; Start 10/12/16 at 13:00 Cyanocobalamin (Vitamin B12) 1,000 mcg DAILY PO Last administered on 10/15/16 08:23; Admin Dose 1,000 MCG; Start 10/13/16 at 18:00 Lorazepam (Ativan) 0.5 mg HS PRN PO INSOMNIA Last administered on 10/14/16 23: 16; Admin Dose 0.5 MG; Start 10/14/16 at 19:30 ALAN JOLLY MD Oct 16, 2016 06:40
[2016-10-16 07:38] LABS: BASOPHILS % 0.3 % (0.0-2.0); EOSINOPHILS # 0.2 10^3/ul (0.0-0.5); EOSINOPHILS % 1.4 % (0.0-7.0); HEMATOCRIT 42.7 % (37.0-47.0); LYMPHOCYTES # 2.6 10^3/ul (0.8-2.9); LYMPHOCYTES % 24.8 % (15.0-51.0); MEAN CORPUSCULAR HEMOGLOBIN 29.4 pg (29.0-33.0); MEAN CORPUSCULAR HGB CONC 32.8 g/dl (32.0-37.0); MEAN CORPUSCULAR VOLUME 89.7 fl (82.0-101.0); MEAN PLATELET VOLUME 11.1 fl (7.4-10.4); MONOCYTE # 0.6 10^3/ul (0.3-0.9); MONOCYTES % 6.2 % (0.0-11.0); PLATELET COUNT 294 10^3/UL (140-415); RED BLOOD COUNT 4.76 10^6/ul (4.20-5.40); RED CELL DISTRIBUTION WIDTH 12.2 % (11.5-14.5); WHITE BLOOD COUNT 10.4 10^3/ul (4.8-10.8)
[2016-10-16 08:05] LABS: CALCIUM 9.7 mg/dl (8.4-10.2); CREATININE 0.75 mg/dl (0.44-1.00); MAGNESIUM 2.1 mg/dl (1.7-2.5); PHOSPHORUS 3.8 mg/dl (2.5-4.9); POTASSIUM 4.2 mmol/L (3.5-5.1)
--- NOTE | 2016-10-16 11:25 | CONS ---
Date/Time of Note Date/Time of Note DATE: 10/16/16 TIME: 11:23 Consult Date/Type/Reason Admit Date/Time Oct 11, 2016 at 12:42 Initial Consult Date 10/11/16 Type of Consultation: Neurology Reason for Consultation encephalopathy, PRES Ordering Provider: CHEYENNE RICHEY [employer] Subjective HSV PCR 1/2 negative CSF studies negative Objective Vital Signs Date Time Temp Pulse Resp B/P Pulse Ox O2 Delivery O2 Flow Rate FiO2 10/16/16 08:04 61 10/16/16 03:57 98.7 17 95/53 97 10/15/16 20:00 Room Air Intake and Output 10/15/16 10/15/16 10/16/16 15:00 23:00 07:00 Intake Total 650 ml 1200 ml Output Total 1200 ml 2100 ml Balance -550 ml -900 ml Exam awake alert oriented to self hospital family short term memory poor no aphasia or neglect CN; II-XII intact Motor 5/5 UE and LE Tone wnl, Sensory intact Reflexes 2+ throughout toes down coordination no ataxia Results/Medications Result Diagram: 10/16/16 0641 10/16/16 0641 Results 24 hrs Laboratory Tests Test 10/15/16 15:26 10/16/16 06:41 Sodium Level 143 144 White Blood Count 10.4 Red Blood Count 4.76 Hemoglobin 14.0 Hematocrit 42.7 Mean Corpuscular Volume 89.7 Mean Corpuscular Hemoglobin 29.4 Mean Corpuscular Hemoglobin Concent 32.8 Red Cell Distribution Width 12.2 Platelet Count 294 Mean Platelet Volume 11.1 H Neutrophils % 67.0 Lymphocytes % 24.8 Monocytes % 6.2 Eosinophils % 1.4 Basophils % 0.3 Nucleated Red Blood Cells % 0.0 Neutrophils # 7.0 Lymphocytes # 2.6 Monocytes # 0.6 Eosinophils # 0.2 Basophils # 0.0 Nucleated Red Blood Cells # 0.0 Potassium Level 4.2 Chloride Level 104 Carbon Dioxide Level 27 Anion Gap 17 H Blood Urea Nitrogen 10 Creatinine 0.75 Glucose Level 86 Calcium Level 9.7 Phosphorus Level 3.8 Magnesium Level 2.1 Medications Current Medications Ondansetron HCl (Zofran Inj) 4 mg Q6H PRN IV NAUSEA AND/OR VOMITING; Start at 03:30 Acetaminophen 650 mg 650 mg Q4H PRN PO PAIN AND OR ELEVATED TEMP Last administered on 10/15/16 12:45; Admin Dose 650 MG; Start 10/11/16 at 03:30 Ceftriaxone Sodium (Rocephin) 50 ml @ 100 mls/hr Q24H IVPB Last administered on 10/15/16 15:44; Admin Dose 100 MLS/HR; Start 10/11/16 at 16:00 Levetiracetam (Keppra) 750 mg BID PO Last administered on 10/15/16 21:00; Admin Dose 750 MG; Start 10/12/16 at 13:00 Cyanocobalamin (Vitamin B12) 1,000 mcg DAILY PO Last administered on 10/15/16 08:23; Admin Dose 1,000 MCG; Start 10/13/16 at 18:00 Lorazepam (Ativan) 0.5 mg HS PRN PO INSOMNIA Last administered on 10/14/16 23: 16; Admin Dose 0.5 MG; Start 10/14/16 at 19:30 Assessment/Plan Chief Complaint/Hosp Course 26 yo female with no significant PMHx admitted with unclear episode of possible syncope followed by amnesia, patient has loss of recollection for events after leaving her house for work. Family will attempt to obtain collateral history from coworkers regarding further details of the events. She has persistent short term memory issues. HSV PCR negative, suspected DI Recommend: MRI Brain w and without contrast temporal lobe cuts- unable to review films, per report findings consistent with PRES continue Keppra 750 mg q12h, PRES often follows seizure would advise atleast treatment with AED for atleast 1 year LP studies unremarkable, HSV PCR negative MRA Head unremarkable CRP elevated 1.7, TAY is negative, ESR: 22 hypernatremia likely DI suggest discharge planning once metabolic issues stabilized, would recommend repeat MRI Brain with and without contrast in 2 weeks as PRES usually resolves with time supplement b12 may benefit from outpatient cognitive therapy advised patient to abstain from driving she should have close neurology follow up, may see Dr. Matthews as outpatient Problems: MURTAZA BEY MD Oct 16, 2016 11:25
[2016-10-16] MEDS: LEVETIRACETAM 750 MG TAB PO SCH ×2 (12:45→20:34)
[2016-10-16] MEDS: CYANOCOBALAMIN 500 MCG TAB PO SCH (12:45)
[2016-10-16 13:38] LABS: CREATININE, RANDOM URINE 40 mg/dL (20-320); MICROALBUMIN <0.2 mg/dL; MICROALBUMIN/CREATININE RATIO NOTE (<30)
--- NOTE | 2016-10-16 14:34 | PN ---
Date/Time of Note Date/Time of Note DATE: 10/16/16 TIME: 14:31 Assessment/Plan VTE Prophylaxis VTE Prophylaxis Intervention: ambulation, SCD's Lines/Catheters IV [facility] (from [facility] Peripheral IV Urinary Cath still in place: No Assessment/Plan Chief Complaint/Hosp Course 1. Acute encephalopathy with anterograde amnesia. Etiology unclear. Brain imaging studies negative. Status post lumbar puncture. Cultures and serology negative. Electroencephalography showing a right temporal lobe sharps. On anticonvulsants. Being followed by neurology. 2. Urinary tract infection. Urine culture positive for E. coli. Continue antibiotics. 3. Hypernatremia. Resolved. 4. Diabetes insipidus. Etiology unclear. Being followed by endocrinology. 5. Fluids, electrolytes, and nutrition. Regular diet. 6. DVT prophylaxis. Bilateral sequential compression devices. 7. Gastrointestinal prophylaxis. Not indicated. 8. Plan. Continue inpatient monitoring. Await clearance from consultants before discharge. Case discussed with Dr. Judd The plan of care was explained to the patient's family was at the bedside. Problems: Subjective 24 Hr Interval Summary Free Text/Dictation Denies any headache. Exam/Review of Systems Vital Signs Vitals Vital Signs Date Time Temp Pulse Resp B/P Pulse Ox O2 Delivery O2 Flow Rate FiO2 10/16/16 12:02 80 10/16/16 03:57 98.7 17 95/53 97 10/15/16 20:00 Room Air Intake and Output 10/15/16 10/15/16 10/16/16 14:59 22:59 06:59 Intake Total 650 ml 1200 ml Output Total 1200 ml 2100 ml Balance -550 ml -900 ml Exam General: Adequately build 26 year-old female lying in bed in no apparent distress. HEENT: Normocephalic, atraumatic. Eyes: Anicteric sclerae, conjunctivae clear. ENT: Nasal septum midline, oral mucosa moist. Neck supple, no JVD noticed. Respiratory: Bilaterally clear breath sounds. No use of accessory muscles of respiration. No adventitious breath sounds. Cardiovascular: S1, S2 heard. No murmurs or gallops. Abdomen: Soft, nontender, and nondistended. Bowel sounds positive in all 4 quadrants. Genitourinary: Deferred. Extremities: No cyanosis, no clubbing, no edema. Peripheral pulses palpable. Neurologic: Cranial nerves II through XII grossly intact. The patient is awake, alert, and oriented. Short-term memory loss. Skin: Normal skin turgor. No skin rashes. Results Result Diagram: 10/16/16 0641 10/16/16 0641 Results 24 hrs Laboratory Tests Test 10/15/16 15:26 10/16/16 06:41 Sodium Level 143 144 White Blood Count 10.4 Red Blood Count 4.76 Hemoglobin 14.0 Hematocrit 42.7 Mean Corpuscular Volume 89.7 Mean Corpuscular Hemoglobin 29.4 Mean Corpuscular Hemoglobin Concent 32.8 Red Cell Distribution Width 12.2 Platelet Count 294 Mean Platelet Volume 11.1 H Neutrophils % 67.0 Lymphocytes % 24.8 Monocytes % 6.2 Eosinophils % 1.4 Basophils % 0.3 Nucleated Red Blood Cells % 0.0 Neutrophils # 7.0 Lymphocytes # 2.6 Monocytes # 0.6 Eosinophils # 0.2 Basophils # 0.0 Nucleated Red Blood Cells # 0.0 Potassium Level 4.2 Chloride Level 104 Carbon Dioxide Level 27 Anion Gap 17 H Blood Urea Nitrogen 10 Creatinine 0.75 Glucose Level 86 Calcium Level 9.7 Phosphorus Level 3.8 Magnesium Level 2.1 Medications Medications Current Medications Ondansetron HCl (Zofran Inj) 4 mg Q6H PRN IV NAUSEA AND/OR VOMITING; Start at 03:30 Acetaminophen 650 mg 650 mg Q4H PRN PO PAIN AND OR ELEVATED TEMP Last administered on 10/15/16 12:45; Admin Dose 650 MG; Start 10/11/16 at 03:30 Ceftriaxone Sodium (Rocephin) 50 ml @ 100 mls/hr Q24H IVPB Last administered on 10/15/16 15:44; Admin Dose 100 MLS/HR; Start 10/11/16 at 16:00 Levetiracetam (Keppra) 750 mg BID PO Last administered on 10/16/16 12:45; Admin Dose 750 MG; Start 10/12/16 at 13:00 Cyanocobalamin (Vitamin B12) 1,000 mcg DAILY PO Last administered on 10/16/16 12:45; Admin Dose 1,000 MCG; Start 10/13/16 at 18:00 Lorazepam (Ativan) 0.5 mg HS PRN PO INSOMNIA Last administered on 10/14/16 23: 16; Admin Dose 0.5 MG; Start 10/14/16 at 19:30 CHEYENNE RICHEY NP Oct 16, 2016 14:33
[2016-10-16] MEDS: CEFTRIAXONE 1 GM/50 ML (PMX) 50 ML IVPB SCH (15:11)
[2016-10-16 17:14] LABS: VDRL, CSF NON-REACTIVE
[2016-10-16 17:22] LABS: POTASSIUM 3.9 mmol/L (3.5-5.1)
--- NOTE | 2016-10-16 22:08 | CONS ---
Date/Time of Note Date/Time of Note DATE: 10/16/16 TIME: 22:01 Assessment/Plan Assessment/Plan Problems: (1) Hypernatremia Status: Resolved Comment: Although sodium level increased to 144 this am, spontaneously decreased to 142 this afternoon. Pt. has no thirst. Pt. w/ no increase in UOP this afternoon. Pt. may or may not have had mild DI but I do not believe she has it now. Will await full I/O eval tomorrow am and repeat sodium level tomorrow am as well. If these are normal, pt. ok for d/c home from endo standpoint w/o evidence of fci DI. Consultation Date/Type/Reason Admit Date/Time Oct 11, 2016 at 12:42 Initial Consult Date 10/15/16 Type of Consultation: Endocrinology Reason for Consultation hypernatremia Referring Provider: CHEYENNE RICHEY NP 24 HR Interval Summary Constitutional: improved, no complaints Detailed Summary Respiratory: no complaints Cardiovascular: no complaints Gastrointestinal: no complaints Genitourinary: no complaints Musculoskeletal: no complaints Neurologic: no complaints Endocrine: polyuria (overnight w/ 3-4 episodes but has only gone 2x during day today), No polydypsia (only 2 cups of water during day) Exam/Review of Systems Vital Signs Vitals VS - Last 72 Hours, by Label Date Time Temp Pulse Resp B/P Pulse Ox O2 Delivery O2 Flow Rate FiO2 10/16/16 20:06 98.6 78 17 108/66 96 10/16/16 20:01 79 10/16/16 16:19 80 10/16/16 16:14 98.1 86 19 102/52 94 10/16/16 12:02 80 10/16/16 08:04 61 10/16/16 04:17 75 10/16/16 03:57 98.7 71 17 95/53 97 10/16/16 01:57 98.4 71 17 100/52 93 10/16/16 00:00 69 10/15/16 20:46 87 10/15/16 20:00 98.2 20 106/68 96 Room Air 10/15/16 16:12 98 10/15/16 15:49 98.3 104 18 120/73 97 10/15/16 12:05 72 10/15/16 11:56 97.5 72 19 106/60 98 10/15/16 08:07 66 10/15/16 08:00 98.6 80 17 109/67 98 10/15/16 07:52 98.6 71 18 102/61 98 10/15/16 04:05 67 10/15/16 04:00 98.7 76 16 103/64 96 10/15/16 00:37 98.6 78 16 111/58 94 10/15/16 00:07 73 10/14/16 20:41 98.9 76 16 110/58 95 10/14/16 20:00 81 10/14/16 16:03 97.8 66 18 108/60 97 10/14/16 16:01 82 10/14/16 12:21 82 10/14/16 11:43 98.3 76 18 103/55 97 10/14/16 08:15 54 10/14/16 08:07 98.1 73 17 104/68 98 10/14/16 05:31 98.4 54 16 91/63 96 10/14/16 04:05 65 10/14/16 00:08 98.2 68 18 111/70 97 10/14/16 00:00 86 Vital Signs Date Time Temp Pulse Resp B/P Pulse Ox O2 Delivery O2 Flow Rate FiO2 10/16/16 20:06 98.6 78 17 108/66 96 10/15/16 20:00 Room Air Intake and Output 10/15/16 10/15/16 10/16/16 15:00 23:00 07:00 Intake Total 650 ml 1200 ml Output Total 1200 ml 2100 ml Balance -550 ml -900 ml Exam Constitutional: alert, oriented, well developed Psych: nl mood/affect, no complaints Respiratory: clear to auscultation, normal air movement Cardiovascular: nl pulses, regular rate and rhythm, No edema, No murmurs/extra sounds, No rub Gastrointestinal: bowel sounds, nl liver, spleen, non-tender, soft, No mass, No rebound or guarding Musculoskeletal: nl extremities to inspection Extremities: normal pulses, No clubbing, No cyanosis, No edema Neurological: INSERTER OPERATOR II-XII intact, nl mental status, nl speech, nl strength Results Result Diagram: 10/16/16 0641 10/16/16 1649 Results 24 hrs Laboratory Tests Test 10/16/16 06:41 10/16/16 16:49 White Blood Count 10.4 Red Blood Count 4.76 Hemoglobin 14.0 Hematocrit 42.7 Mean Corpuscular Volume 89.7 Mean Corpuscular Hemoglobin 29.4 Mean Corpuscular Hemoglobin Concent 32.8 Red Cell Distribution Width 12.2 Platelet Count 294 Mean Platelet Volume 11.1 H Neutrophils % 67.0 Lymphocytes % 24.8 Monocytes % 6.2 Eosinophils % 1.4 Basophils % 0.3 Nucleated Red Blood Cells % 0.0 Neutrophils # 7.0 Lymphocytes # 2.6 Monocytes # 0.6 Eosinophils # 0.2 Basophils # 0.0 Nucleated Red Blood Cells # 0.0 Sodium Level 144 142 Potassium Level 4.2 3.9 Chloride Level 104 102 Carbon Dioxide Level 27 27 Anion Gap 17 H 17 H Blood Urea Nitrogen 10 Creatinine 0.75 Glucose Level 86 Calcium Level 9.7 Phosphorus Level 3.8 Magnesium Level 2.1 Medications Medications Current Medications Ondansetron HCl (Zofran Inj) 4 mg Q6H PRN IV NAUSEA AND/OR VOMITING; Start at 03:30 Acetaminophen 650 mg 650 mg Q4H PRN PO PAIN AND OR ELEVATED TEMP Last administered on 10/15/16 12:45; Admin Dose 650 MG; Start 10/11/16 at 03:30 Ceftriaxone Sodium (Rocephin) 50 ml @ 100 mls/hr Q24H IVPB Last administered on 10/16/16 15:11; Admin Dose 100 MLS/HR; Start 10/11/16 at 16:00 Levetiracetam (Keppra) 750 mg BID PO Last administered on 10/16/16 20:34; Admin Dose 750 MG; Start 10/12/16 at 13:00 Cyanocobalamin (Vitamin B12) 1,000 mcg DAILY PO Last administered on 10/16/16 12:45; Admin Dose 1,000 MCG; Start 10/13/16 at 18:00 Lorazepam (Ativan) 0.5 mg HS PRN PO INSOMNIA Last administered on 10/14/16 23: 16; Admin Dose 0.5 MG; Start 10/14/16 at 19:30 ALAN JOLLY MD Oct 16, 2016 22:08
[2016-10-17] VITALS (10 sets, daily range): BP systolic 100–136; BP diastolic 58–60; PULSE 58–150; RESP 17–19
[2016-10-17 06:47] LABS: BASOPHILS % 0.3 % (0.0-2.0); EOSINOPHILS # 0.1 10^3/ul (0.0-0.5); EOSINOPHILS % 1.4 % (0.0-7.0); HEMATOCRIT 41.7 % (37.0-47.0); HEMOGLOBIN 13.6 g/dl (12.0-16.0); LYMPHOCYTES # 2.3 10^3/ul (0.8-2.9); MEAN CORPUSCULAR HEMOGLOBIN 29.5 pg (29.0-33.0); MEAN CORPUSCULAR HGB CONC 32.6 g/dl (32.0-37.0); MEAN CORPUSCULAR VOLUME 90.5 fl (82.0-101.0); MEAN PLATELET VOLUME 10.9 fl (7.4-10.4); MONOCYTE # 0.7 10^3/ul (0.3-0.9); NEUTROPHIL # 6.7 10^3/ul (1.6-7.5); PLATELET COUNT 279 10^3/UL (140-415); RED BLOOD COUNT 4.61 10^6/ul (4.20-5.40); WHITE BLOOD COUNT 9.9 10^3/ul (4.8-10.8)
[2016-10-17 07:08] LABS: CALCIUM 9.6 mg/dl (8.4-10.2); CREATININE 0.77 mg/dl (0.44-1.00); POTASSIUM 4.4 mmol/L (3.5-5.1)
[2016-10-17 07:09] LABS: MAGNESIUM 1.9 mg/dl (1.7-2.5); PHOSPHORUS 4.1 mg/dl (2.5-4.9)
[2016-10-17] MEDS: LEVETIRACETAM 750 MG TAB PO SCH (08:36)
[2016-10-17] MEDS: CYANOCOBALAMIN 500 MCG TAB PO SCH (08:36)
[2016-10-17] MEDS: ACETAMINOPHEN 325 MG TAB PO PRN (08:43)
--- NOTE | 2016-10-17 14:02 | CONS ---
Date/Time of Note Date/Time of Note DATE: 10/17/16 TIME: 13:53 Assessment/Plan Assessment/Plan Problems: (1) Hypernatremia Status: Resolved Comment: Despite UOP slightly more than intake, not in the range that is c/w DI and pt. w/o feelings of polyuria or polydipsia, pt. w/ 4 point rise in her serum sodium overnight. I am STILL reluctant to call this DI given the height of the sodium level is so low. However, I will recheck the sodium levels this afternoon and also recheck serum and urine osmolality levels. If these levels are normal, will feel pt. acceptable for d/c home. However, if pt. w/ rising sodium or ongoing inappropriately low urine osm, then would recommend restarting ddAVP and pt. may need to be d/c'ed on this. Consultation Date/Type/Reason Admit Date/Time Oct 11, 2016 at 12:42 Initial Consult Date 10/15/16 Type of Consultation: Endocrinology Reason for Consultation Hypernatremia Referring Provider: CHEYENNE RICHEY NP 24 HR Interval Summary Constitutional: improved (notes improvement in antegrade memory ), no complaints Detailed Summary Respiratory: no complaints Cardiovascular: no complaints Gastrointestinal: no complaints Genitourinary: no complaints Musculoskeletal: no complaints Neurologic: no complaints Endocrine: No polydypsia, No polyuria Exam/Review of Systems Vital Signs Vitals VS - Last 72 Hours, by Label Date Time Temp Pulse Resp B/P Pulse Ox O2 Delivery O2 Flow Rate FiO2 10/17/16 13:17 77 10/17/16 11:45 98.1 74 19 112/60 96 10/17/16 08:06 71 10/17/16 07:48 98.2 69 19 117/59 97 10/17/16 04:04 58 10/17/16 01:58 98.9 64 17 100/58 99 10/17/16 00:02 63 10/16/16 20:06 98.6 78 17 108/66 96 10/16/16 20:01 79 10/16/16 16:19 80 10/16/16 16:14 98.1 86 19 102/52 94 10/16/16 12:02 80 10/16/16 08:04 61 10/16/16 04:17 75 10/16/16 03:57 98.7 71 17 95/53 97 10/16/16 01:57 98.4 71 17 100/52 93 10/16/16 00:00 69 10/15/16 20:46 87 10/15/16 20:00 98.2 20 106/68 96 Room Air 10/15/16 16:12 98 10/15/16 15:49 98.3 104 18 120/73 97 10/15/16 12:05 72 10/15/16 11:56 97.5 72 19 106/60 98 10/15/16 08:07 66 10/15/16 08:00 98.6 80 17 109/67 98 10/15/16 07:52 98.6 71 18 102/61 98 10/15/16 04:05 67 10/15/16 04:00 98.7 76 16 103/64 96 10/15/16 00:37 98.6 78 16 111/58 94 10/15/16 00:07 73 10/14/16 20:41 98.9 76 16 110/58 95 10/14/16 20:00 81 10/14/16 16:03 97.8 66 18 108/60 97 10/14/16 16:01 82 Vital Signs Date Time Temp Pulse Resp B/P Pulse Ox O2 Delivery O2 Flow Rate FiO2 10/17/16 13:17 77 10/17/16 11:45 98.1 19 112/60 96 10/15/16 20:00 Room Air Intake and Output 10/16/16 10/16/16 10/17/16 15:00 23:00 07:00 Intake Total 960 ml 850 ml Output Total 800 ml 1350 ml Balance 160 ml -500 ml Exam Constitutional: alert, oriented, well developed Respiratory: clear to auscultation, normal air movement Cardiovascular: nl pulses, regular rate and rhythm, No edema, No murmurs/extra sounds, No rub Gastrointestinal: bowel sounds, nl liver, spleen, non-tender, soft, No mass, No rebound or guarding Musculoskeletal: nl extremities to inspection Extremities: normal pulses, No clubbing, No cyanosis, No edema Neurological: COMPACTING MACHINE OPERATOR/TENDER II-XII intact, nl mental status, nl speech, nl strength Results Result Diagram: 10/17/16 0616 10/17/16 0602 Results 24 hrs Laboratory Tests Test 7/25/17 16:49 10/17/16 06:02 10/17/16 06:16 10/17/16 11:32 Sodium Level 142 146 H Potassium Level 3.9 4.4 Chloride Level 102 103 Carbon Dioxide Level 27 28 Anion Gap 17 H 19 H Blood Urea Nitrogen 16 Creatinine 0.77 Glucose Level 90 Calcium Level 9.6 White Blood Count 9.9 Red Blood Count 4.61 Hemoglobin 13.6 Hematocrit 41.7 Mean Corpuscular Volume 90.5 Mean Corpuscular Hemoglobin 29.5 Mean Corpuscular Hemoglobin Concent 32.6 Red Cell Distribution Width 12.0 Platelet Count 279 Mean Platelet Volume 10.9 H Neutrophils % 68.0 Lymphocytes % 23.0 Monocytes % 7.0 Eosinophils % 1.4 Basophils % 0.3 Nucleated Red Blood Cells % 0.0 Neutrophils # 6.7 Lymphocytes # 2.3 Monocytes # 0.7 Eosinophils # 0.1 Basophils # 0.0 Nucleated Red Blood Cells # 0.0 Phosphorus Level 4.1 Magnesium Level 1.9 Lab Scanned Report REFERENCE LAB Medications Medications Current Medications Ondansetron HCl (Zofran Inj) 4 mg Q6H PRN IV NAUSEA AND/OR VOMITING; Start at 03:30 Acetaminophen 650 mg 650 mg Q4H PRN PO PAIN AND OR ELEVATED TEMP Last administered on 10/17/16 08:43; Admin Dose 650 MG; Start 10/11/16 at 03:30 Ceftriaxone Sodium (Rocephin) 50 ml @ 100 mls/hr Q24H IVPB Last administered on 10/16/16 15:11; Admin Dose 100 MLS/HR; Start 10/11/16 at 16:00 Levetiracetam (Keppra) 750 mg BID PO Last administered on 10/17/16 08:36; Admin Dose 750 MG; Start 10/12/16 at 13:00 Cyanocobalamin (Vitamin B12) 1,000 mcg DAILY PO Last administered on 10/17/16 08:36; Admin Dose 1,000 MCG; Start 10/13/16 at 18:00 Lorazepam (Ativan) 0.5 mg HS PRN PO INSOMNIA Last administered on 10/14/16 23: 16; Admin Dose 0.5 MG; Start 10/14/16 at 19:30 ALAN JOLLY MD Oct 17, 2016 14:02
--- NOTE | 2016-10-17 14:54 | PN ---
Date/Time of Note Date/Time of Note DATE: 10/17/16 TIME: 14:53 Assessment/Plan VTE Prophylaxis VTE Prophylaxis Intervention: ambulation, SCD's Lines/Catheters IV [facility] [place] Urinary Cath still in place: No Assessment/Plan Chief Complaint/Hosp Course 1. Acute encephalopathy with anterograde amnesia. Etiology unclear. Probably secondary to PRES. Status post lumbar puncture. Cultures and serology negative. Electroencephalography showing a right temporal lobe sharps. On anticonvulsants. Being followed by neurology. 2. Urinary tract infection. Urine culture positive for E. coli. Continue antibiotics. 3. Hypernatremia. Being followed by endocrinology and nephrology. 4. Suspected diabetes insipidus. Etiology unclear. Being followed by endocrinology. 5. Fluids, electrolytes, and nutrition. Regular diet. 6. DVT prophylaxis. Bilateral sequential compression devices. 7. Gastrointestinal prophylaxis. Not indicated. 8. Plan. Continue inpatient monitoring. Await clearance from consultants before discharge. Case discussed with Dr. Judd Problems: Subjective 24 Hr Interval Summary Free Text/Dictation Denies any headache. Exam/Review of Systems Vital Signs Vitals Vital Signs Date Time Temp Pulse Resp B/P Pulse Ox O2 Delivery O2 Flow Rate FiO2 10/17/16 14:07 150 10/17/16 11:45 98.1 19 112/60 96 10/15/16 20:00 Room Air Intake and Output 10/16/16 10/16/16 10/17/16 14:59 22:59 06:59 Intake Total 960 ml 850 ml Output Total 800 ml 1350 ml Balance 160 ml -500 ml Exam General: Adequately build 26 year-old female lying in bed in no apparent distress. HEENT: Normocephalic, atraumatic. Eyes: Anicteric sclerae, conjunctivae clear. ENT: Nasal septum midline, oral mucosa moist. Neck supple, no JVD noticed. Respiratory: Bilaterally clear breath sounds. No use of accessory muscles of respiration. No adventitious breath sounds. Cardiovascular: S1, S2 heard. No murmurs or gallops. Abdomen: Soft, nontender, and nondistended. Bowel sounds positive in all 4 quadrants. Genitourinary: Deferred. Extremities: No cyanosis, no clubbing, no edema. Peripheral pulses palpable. Neurologic: Cranial nerves II through XII grossly intact. The patient is awake, alert, and oriented. Short-term memory loss. Skin: Normal skin turgor. No skin rashes. Results Result Diagram: 10/17/16 0616 10/17/16 1402 Results 24 hrs Laboratory Tests Test 10/16/16 16:49 10/17/16 06:02 10/17/16 06:16 10/17/16 11:32 Sodium Level 142 146 H Potassium Level 3.9 4.4 Chloride Level 102 103 Carbon Dioxide Level 27 28 Anion Gap 17 H 19 H Blood Urea Nitrogen 16 Creatinine 0.77 Glucose Level 90 Calcium Level 9.6 White Blood Count 9.9 Red Blood Count 4.61 Hemoglobin 13.6 Hematocrit 41.7 Mean Corpuscular Volume 90.5 Mean Corpuscular Hemoglobin 29.5 Mean Corpuscular Hemoglobin Concent 32.6 Red Cell Distribution Width 12.0 Platelet Count 279 Mean Platelet Volume 10.9 H Neutrophils % 68.0 Lymphocytes % 23.0 Monocytes % 7.0 Eosinophils % 1.4 Basophils % 0.3 Nucleated Red Blood Cells % 0.0 Neutrophils # 6.7 Lymphocytes # 2.3 Monocytes # 0.7 Eosinophils # 0.1 Basophils # 0.0 Nucleated Red Blood Cells # 0.0 Phosphorus Level 4.1 Magnesium Level 1.9 Lab Scanned Report REFERENCE LAB Test 10/17/16 14:02 Sodium Level 145 H Medications Medications Current Medications Ondansetron HCl (Zofran Inj) 4 mg Q6H PRN IV NAUSEA AND/OR VOMITING; Start at 03:30 Acetaminophen 650 mg 650 mg Q4H PRN PO PAIN AND OR ELEVATED TEMP Last administered on 10/17/16 08:43; Admin Dose 650 MG; Start 10/11/16 at 03:30 Ceftriaxone Sodium (Rocephin) 50 ml @ 100 mls/hr Q24H IVPB Last administered on 10/16/16 15:11; Admin Dose 100 MLS/HR; Start 10/11/16 at 16:00 Levetiracetam (Keppra) 750 mg BID PO Last administered on 10/17/16 08:36; Admin Dose 750 MG; Start 10/12/16 at 13:00 Cyanocobalamin (Vitamin B12) 1,000 mcg DAILY PO Last administered on 10/17/16 08:36; Admin Dose 1,000 MCG; Start 10/13/16 at 18:00 Lorazepam (Ativan) 0.5 mg HS PRN PO INSOMNIA Last administered on 10/14/16t 23: 16; Admin Dose 0.5 MG; Start 10/14/16 at 19:30 CHEYENNE RICHEY NP Oct 17, 2016 14:54
[2016-10-17] MEDS: CEFTRIAXONE 1 GM/50 ML (PMX) 50 ML IVPB SCH (15:44)
--- NOTE | 2016-10-17 17:39 | EN ---
Date/Time of Note Date/Time of Note DATE: 10/17/16 TIME: 17:38 Event Note Endocrinology Endocrinology Event Note Urine osm 866. DI absolutely ruled out. Pt. ok for d/c from endo perspective. ALAN JOLLY MD Oct 17, 2016 17:39
--- NOTE | 2016-10-17 17:57 | PDOCDIS ---
Discharge Instructions DIAGNOSIS Discharge Diagnosis Amnesia. PRES. 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 Take medications as per prescription. 2. Follow-up with outpatient neurology at the earliest. Arrange for outpatient neurology follow-up. 3. Take a regular diet. 4. Resume activities as tolerated. Use caution when driving. 5. Return to work once cleared by outpatient neurology. CHEYENNE RICHEY NP Oct 17, 2016 17:57
[2016-10-17] MEDS ORDERED: LEVE750T70 PO (17:58)
[2016-10-17] MEDS ORDERED: CYAN500T46 PO (17:58)
--- NOTE | 2016-10-17 18:51 | DS ---
Date/Time of Note Date/Time of Note DATE: 10/17/16 TIME: 18:48 Discharge Summary Admission/Discharge Info Admit Date/Time Oct 11, 2016 at 12:42 Discharge Date/Time Discharge Diagnosis 1. Anterograde amnesia. 2. PRES (Posterior Reversible Encephalopathy Syndrome). 3. Urinary tract infection. Patient Condition: Stable Consults 1. Tatum Hill MD, Neurology. 2. Domo Castellon DO, Nephrology. 3. Nirmal Rubi MD, Endocrinology. Procedures Brain MRA IMPRESSION: 1. Normal MRA of the brain. Brain CT IMPRESSION: Unremarkable CT of the head without contrast. Fluoroscopic Guided lumbar Puncture IMPRESSION: Satisfactory fluoroscopic guided lumbar puncture. The opening pressure was 10 cm of water. Hx of Present Illness Patient is a 26-year-old female who presents to ER after she was found down. History is limited due to patient being amnestic to event. According to her father, she said goodbye and left home in Uber to go to work. She was later found lying in the bushes unresponsive in the parking lot of her work. Patient spontaneously regained consciousness. She states that she cannot recall leaving the house. The patient denies headache. She reports feeling lightheaded. She denies chest pain, shortness of breath, abdominal pain, fever. She did have several episodes of NBNB vomiting 2 days ago, but has resolved. She denied being assaulted. In ER, Head CT was negative. Vitals were stable. Lab showed WBC of 17K. . Hospital Course The patient's symptomatology was extensively evaluated. The patient underwent a brain CT scan and brain MRI that was negative. The patient underwent a lumbar puncture. The patient's spinal fluid studies were negative. The patient 's MRA was suggestive of PRES as as per the neurologist. The patient's Electroencephalography was showing right temporal lobe sharps. Hence the patient was started on anticonvulsant therapy. The patient was also started on cyanocobalamin. Etiology of the patient's amnesia could have been most probably PRES. The patient continued to have short-term memory loss throughout the hospital course. The patient was suspected to have diabetes insipidus because of underlying hypernatremia and low urine osmolarity. Therefore, Endocrinology and nephrology was on the patient's case. At one point of time, the patient was maintained on desmopressin for possible diabetes insipidus. However, after further workup the patient was ruled out for any underlying diabetes insipidus. The patient also had underlying urinary tract infection. The patient was treated appropriately with antibiotics. The patient is not back to her baseline. The patient works as a pharmacy delivery driver. The patient is in not in a state to go back to her work. Hence a disability form was filled out for the patient. The patient needs outpatient neurology follow-up and clearance by outpatient neurology before she can return back to her work. The patient had a stable but prolonged hospital course because of the complexity of the patient's underlying condition. The patient was cleared by consultants to be discharged home. Discharge Instructions 1. Take medications as per prescription. 2. Follow-up with outpatient neurology at the earliest. Arrange for outpatient neurology follow-up. 3. Take a regular diet. 4. Resume activities as tolerated. Use caution when driving. 5. Return to work once cleared by outpatient neurology. The patient's family verbalized understanding of the discharge instructions. At this time I would like to thank all the consultants for seeing the patient and providing clinical recommendations. Case discussed with Dr. [facility] Active Scripts Cyanocobalamin* (Vitamin B12*) 500 Mcg Tab, 1000 MCG PO DAILY, #30 TAB Prov:CHEYENNE RICHEY NP 10/17/16 Levetiracetam* (Keppra*) 750 Mg Tablet, 750 MG PO BID for 30 Days, TAB Prov:CHEYENNE RICHEY NP 10/17/16 Follow-up Plan Please follow-up with outpatient neurologist at the earliest. Primary Care Provider Care Physician No Primary Time spent on discharge: > 30 minutes Pending Labs Name: IGGY GOLDMAN Age/Sex: 26/F Attend Dr: MARTIN WHITNEY MD Acct: [id number] MR# : [id number] : 1990 Location: [facility] [place] 5539-[id number] Admit: 10/11/16 Specimen: [id number] Status: Complete Alejandra: 10/11/16-1609 Rcvd: 10/11 Source: [facility] Sp Descrip: Procedure Result Microbiology URINE CULTURE Final Organism 1 ESCHERICHIA COLI COLONY COUNT >100,000 CFU/ml E COLI M.I.C. RX --------- --- AMPICILLIN >=32 R CEFAZOLIN <=4 S CEFOTAXIME S CIPROFLOXACIN 1 S GENTAMICIN <=1 S LEVOFLOXACIN 1 S NITROFURANTOIN <=16 S TOBRAMYCIN <=1 S TRIMETHOPRIM/SULFAMETHOXAZOLE >=320 R Laboratory Tests Test 10/17/16 06:02 10/17/16 06:16 10/17/16 11:32 10/17/16 14:02 Sodium Level 146mmol/L (135-144) 145mmol/L (135-144) Potassium Level 4.4mmol/L (3.5-5.1) Chloride Level 103mmol/L (97-110) Carbon Dioxide Level 28mmol/L (21-31) Anion Gap 19 (8-16) Blood Urea Nitrogen 16mg/dl (7-20) Creatinine 0.77mg/dl (0.44-1.00) Glucose Level 90mg/dl (70-220) Calcium Level 9.6mg/dl (8.4-10.2) White Blood Count 9.910^3/ul (4.8-10.8) Red Blood Count 4.6110^6/ul (4.20-5.40) Hemoglobin 13.6g/dl (12.0-16.0) Hematocrit 41.7% (37.0-47.0) Mean Corpuscular Volume 90.5fl (82.0-101.0) Mean Corpuscular Hemoglobin 29.5pg (29.0-33.0) Mean Corpuscular Hemoglobin Concent 32.6g/dl (32.0-37.0) Red Cell Distribution Width 12.0% (11.5-14.5) Platelet Count 95601^3/UL (140-415) Mean Platelet Volume 10.9fl (7.4-10.4) Neutrophils % 68.0% (39.0-77.0) Lymphocytes % 23.0% (15.0-51.0) Monocytes % 7.0% (0.0-11.0) Eosinophils % 1.4% (0.0-7.0) Basophils % 0.3% (0.0-2.0) Nucleated Red Blood Cells % 0.0/100WBC (0.0-0.0) Neutrophils # 6.710^3/ul (1.6-7.5) Lymphocytes # 2.310^3/ul (0.8-2.9) Monocytes # 0.710^3/ul (0.3-0.9) Eosinophils # 0.110^3/ul (0.0-0.5) Basophils # 0.010^3/ul (0.0-0.1) Nucleated Red Blood Cells # 0.010^3/ul (0.0-0.0) Phosphorus Level 4.1mg/dl (2.5-4.9) Magnesium Level 1.9mg/dl (1.7-2.5) Lab Scanned Report REFERENCE [id number] Osmolality 294mOsm/kg (280-295) Test 10/17/16 15:20 Urine Osmolality 866mOsm/kg (250-1200) CHEYENNE RICHEY NP Oct 17, 2016 18:51 CHEYENNE RICHEY NP Oct 17, 2016 18:51
--- NOTE | 2016-10-18 15:48 | CONS ---
DATE OF ADMISSION: 10/11/2016 DATE OF CONSULTATION: 10/14/2016 REASON FOR CONSULTATION: Hyponatremia. HISTORY OF PRESENT ILLNESS: The patient is a 26-year-old female with no significant past medical history, who was brought into the [facility] after being found down. The patient was noted to be amnestic, apparently patient according to her father, said good-by and left home in an Uber to go to work. She was later found in the bushes and unresponsive. The patient regained consciousness, was brought into the hospital, where she was having episodes of vomiting. In the emergency room the patient had a CT scan which was negative. She was subsequently admitted to telemetry for evaluation. During the course of evaluation, patient had LP performed to rule out any form of meningitis which was negative and neurologist evaluated the patient, and stated that given that the patient may have underlying PRES syndrome. Patient had MRA and MRI of the brain as well. The patient was also noted to have urinary tract infection and was being treated with antibiotic therapy. In terms of the patient's renal history, the patient upon arrival to the hospital was noted to be hyponatremic with sodium levels around 144. During hospital course the patient had persistent hyponatremia despite receiving D5W. The patient herself gives history of feeling thirsty, but denies any episodes of polyuria. The patient denies any lithium or use any NSAID use. PAST MEDICAL HISTORY: Unknown. PAST SURGICAL HISTORY: None. ALLERGIES: NONE. FAMILY HISTORY: No family history of heart disease. SOCIAL HISTORY: Does not smoke, drink or do drugs. MEDICATION: Reviewed. REVIEW OF SYSTEMS: A 14 point review of system was conducted, pertinent positives are stated in HPI, otherwise negative. PHYSICAL EXAMINATION: VITAL SIGNS: Blood pressure 103/55, respirations 18, pulse 86, temperature 98.3. HEENT: Head is normocephalic. Pupils are reactive to light. NECK: Supple. HEART: Regular rate. LUNGS: Show diminished breath sounds at the bases. ABDOMEN: Soft, nontender to palpation. No rebound or guarding. EXTREMITIES: Negative for clubbing, cyanosis, no edema. DERMATOLOGIC: No rashes. MUSCULOSKELETAL: No joint effusion. NEUROLOGICAL: No obvious focal deficits. LABORATORY: Sodium 145, potassium 3.8, BUN 5, creatinine 0.6. CBC within normal limits. The patient's initial urinalysis was reviewed. ASSESSMENT AND PLAN: This is a 26-year-old female who presents: 1. Hypernatremia. Underlying etiology is unclear. The possibility of diabetes insipidus is a consideration given underlying acute neurologic process. Plan is to do full work up. We will check urine sodium, urine osmolality, serum osmolality. We will monitor strict intake and output. Will encourage patient to increase free water intake. Continue D5W at current rate. Monitor serum sodium levels closely. If patient shows evidence of possible diabetes insipidus would consider giving DDAVP. 2. Acute encephalopathy with amnesia. Etiology is unclear. Possibly due to posterior reversible encephalopathy syndrome (press syndrome). The patient's CT scan of brain, MRI was normal. Neurology is following. Follow up recommendations. 3. Leukocytosis possibly due to . Continue current antibiotic regimen. Thank you, Dr. Dawkins, for this interesting consult. It will be a pleasure to follow the patient with you throughout the hospital course. Dictated By: Domo Castellon DO /taylor/kalli /Document#: [id number]
--- NOTE | 2016-10-19 06:56 | PN ---
DATE: 10/17/2016 SUBJECTIVE DATA: The patient is stable. No acute events overnight. No acute distress at this time. The patient describes decrease in urinary output. OBJECTIVE DATA: VITAL SIGNS: Blood pressure 95/53, respirations 17, pulse 91, temperature 98.7. HEENT: Head is normocephalic. NECK: Supple. HEART: Regular rate. LUNGS: Diminished breath sounds at the base. ABDOMEN: Soft, nontender to palpation. No rebound or guarding. EXTREMITIES: Negative for clubbing or cyanosis. No edema. DERMATOLOGIC: No rashes. MUSCULOSKELETAL: No joint effusions. NEUROLOGIC: No focal deficits. MEDICATIONS: Reviewed. LABORATORY AND DIAGNOSTIC DATA: Sodium 144, BUN 10, creatinine 0.75. White count 10.4, hemoglobin 14, hematocrit 42.6, platelet count 295,000. ASSESSMENT AND PLAN: 1. Hypernatremia. Etiology is likely diabetes insipidus, possibly transient. The patient's urine osmolality was inappropriate low for a level of hypernatremia. The patient was given low dose , subsequently discontinued by endocrinology. At this point, will defer to them for further management and monitor sodium levels. 2. Acute encephalopathy secondary to posterior reversible encephalopathy syndrome. Continue to monitor. Follow up with neurology. 3. . Continue current antibiotic regimen. Dictated By: Domo Castellon DO /taylor/nile /Document#: [id number]
== END 2016-10-17 19:51 | disposition home or self-care (01) | DRG 71 ==
LOC: E/R 16:14 → MS4 21:53 → OBSVTOIN 10-11 12:42
PROVIDERS: ADMIT Internal Medicine; ATTEND Internal Medicine
PROC: 009U3ZX Drainage of Spinal Canal, Percutaneous Approach, Diagnostic (ICD-10-PCS; principal; 2016-10-12)
DX: I67.83 Posterior reversible encephalopathy syndrome (principal); E87.0 Hyperosmolality and hypernatremia; N39.0 Urinary tract infection, site not specified; R41.1 Anterograde amnesia; E86.0 Dehydration; B96.20 Unspecified Escherichia coli [E. coli] as the cause of diseases classified elsewhere
CPT/HCPCS: 36415; 70450; 70544; 70552; 80048; 80051; 80053; 80307; 81001; 81003; 82043; 82607; 82746; 82945; 83036; 83615; 83735; 83930; 83935; 84100; 84155; 84157; 84295; 84300; 84443; 84703; 85025; 85610; 85613; 85651; 86038; 86140; 86592; 86635; 86703; 87070; 87077; 87086; 87529; 89051; 93005; 95819; 96360; 96361; G0378; J0696; J7030; J7070